=== PATIENT | female | born 1995 | race African-American/Black ===

== ENCOUNTER 2016-06-06 15:41 | Emergency (ER) | payer MEDICAID ==
[2016-06-06 15:52] VITALS: BP 106/60
--- NOTE | 2016-06-06 16:43 | ER Document Report ---
ED Medical Screen (RME) - General Mode of Arrival: Ambulatory Information source: Patient TRAVEL OUTSIDE OF THE [place] IN LAST 30 DAYS: No - HPI Patient complains to provider of: Withdrawal Symptoms Associated Symptoms: Other - see notes above <LILIYA MOURA - Last Filed: 06/06/16 17:23> <ANNIE CHAN - Last Filed: 06/06/16 19:14> - General Chief Complaint: Vomiting/Diarrhea Stated Complaint: WEAKNESS Notes: 21 year old (26 weeks) female with history of opiate drug abuse ( Percocet) presents to the ED complaining of withdrawal symptoms that include nausea, vomiting, diarrhea, and right abdominal pain. Patient was seen earlier today by the health department (had ultrasound performed) and was told to come to the ED for withdrawal medication to prevent labor. Patient states that she will be starting Subutex treatment on 06/13/2016 with Tiffanie Rodriguez. ( LILIYA MOURA) - Related Data Allergies/Adverse Reactions: No Known Allergies Allergy (Verified 06/06/16 16:10) Home Medications: Current Home Medications No Home Medications 06/06/16 [History] Past Medical History - General Information source: Patient Renal/ Medical History: Reports: Hx Pelvic Inflammatory Disease - month ago. Denies: Hx Peritoneal Dialysis GI Medical History: Reports: Hx Gastroesophageal Reflux Disease - Immunizations Hx Diphtheria, Pertussis, Tetanus Vaccination: No <LILIYA MOURA - Last Filed: 06/06/16 17:23> Review of Systems - Review of Systems Constitutional: No symptoms reported EENT: No symptoms reported Cardiovascular: No symptoms reported Respiratory: No symptoms reported Gastrointestinal: See HPI, Abdominal pain - right, Diarrhea, Nausea, Vomiting Genitourinary: No symptoms reported Female Genitourinary: See HPI, - 26 weeks Musculoskeletal: No symptoms reported Skin: No symptoms reported Hematologic/Lymphatic: No symptoms reported Neurological/Psychological: No symptoms reported -: Yes All other systems reviewed and negative <LILIYA MOURA - Last Filed: 06/06/16 17:23> Physical Exam - Vital signs Interpretation: Normal - General General appearance: Alert In distress: None - Abdominal Inspection: Normal Distension: No distension Tenderness: Tender - tenderness to palpation of the right abdomen <LILIYA MOURA - Last Filed: 06/06/16 17:23> - Respiratory Respiratory status: No respiratory distress Chest status: Nontender Breath sounds: Normal - Extremities General upper extremity: Normal inspection, Normal ROM General lower extremity: Normal inspection, Normal ROM <ANNIE CHAN - Last Filed: 06/06/16 19:14> - Vital signs Vitals: Temp Pulse Resp BP Pulse Ox 98.6 F 81 18 106/60 99 06/06/16 15:48 06/06/16 15:48 06/06/16 15:48 06/06/16 15:48 06/06/16 15:48 Course <LILIYA MOURA - Last Filed: 06/06/16 17:23> <ANNIE CHAN - Last Filed: 06/06/16 19:14> - Re-evaluation Re-evalutation: 06/06/16 Patient is a 21-year-old female who comes in stating that she is having withdrawal symptoms and she took her last Percocet this morning. Patient is going to be started on Suboxone soon was sent to the emergency department to see if somebody could prescribe a medication for her sooner. I have offered to give her medications for withdrawal such as Zofran, Vistaril, clonidine, and/or other nausea medications. Patient states that she was told to be getting something to prevent her from going into withdrawal. I've explained to the patient that I cannot prescribe Suboxone, methadone, and I'm not going to prescribe opiates someone who is trying to stop abusing opiates. Patient is concerned that she is going to go into withdrawal and because she is 26 weeks will have a problem and going to labor. Again, I have told the patient I'm happy to give her fluids and medications for withdrawal symptoms. I'm happy to send her to labor and delivery to be evaluated if she feels that she needs to be. Patient does not want non-addictive medications and she does not want to go to labor and delivery. Patient is becoming increasingly agitated in the triage area and is starting to swear. Called the patient's counselor at her insistence. Discussed with the patient's counselor as well and in the meantime the patient left the emergency department. 06/06/16 19:13 I personally performed the services described in the documentation, reviewed and edited the documentation which was dictated to the scribe in my presence, and it accurately records my words and actions. (ANNIE CHAN) - Vital Signs Vital signs: Temp Pulse Resp BP Pulse Ox 98.6 F 81 18 106/60 99 06/06/16 15:48 06/06/16 15:48 06/06/16 15:48 06/06/16 15:48 06/06/16 15:48 Doctor's Discharge <LILIYA MOURA - Last Filed: 06/06/16 17:23> <ANNIE CHAN - Last Filed: 06/06/16 19:14> - Discharge Clinical Impression: Opiate addiction Qualifiers: Substance use status: uncomplicated Qualified Code(s): F11.20 - Opioid dependence, uncomplicated Qualifiers: Weeks of gestation: 26 weeks Qualified Code(s): Z3A.26 - 26 weeks gestation of Condition: Stable Disposition: AGAINST MEDICAL ADVICE Instructions: Pain Control without Medication ([facility]) Additional Instructions: Please follow-up with your counselor when you are able to do so. Please return if you have any worsening or further concerns. Scribe Documentation - Scribe Written by Scott:: Scott Isaac, 06/06/2016 1643 acting as scribe for :: Chester <LILIYA MOURA - Last Filed: 06/06/16 17:23>
== END 2016-06-06 17:00 | disposition left against medical advice (07) ==
LOC: ER 15:41
DX: F11.20 Opioid dependence, uncomplicated (principal); R11.10 Vomiting, unspecified; R19.7 Diarrhea, unspecified; R53.1 Weakness; Z79.899 Other long term (current) drug therapy; Z3A.26 26 weeks gestation of pregnancy
CPT/HCPCS: 99281

== ENCOUNTER 2016-09-11 01:18 | Inpatient (IN) | payer MEDICAID ==
[2016-09-11] MEDS ORDERED: PENICILLIN G POTASSIUM 5,000,000 UNIT in DEXTROSE 5%-WATER 100 ML IV ONE (03:23)
[2016-09-11] MEDS ORDERED: RINGERS SOLUTION,LACTATED 1,000 ML IV PRN (03:23)
[2016-09-11] MEDS ORDERED: LIDOCAINE 1% INJ-PF (10 MG/ML) 30 ML SDV ONE (03:28)
[2016-09-11] MEDS ORDERED: PENICILLIN G-K 5 MILLION UNIT VIAL ONE (03:28)
[2016-09-11] MEDS ORDERED: OXYTOCIN/NORMAL SALINE 20 UNIT/1,000 ML RTUINJ ONE (03:28)
[2016-09-11] MEDS ORDERED: MISOPROSTOL 0.2 MG TABLET ONE (03:28)
[2016-09-11] MEDS ORDERED: PROMETHAZINE HCL INJ 25 MG/1 ML VIAL ONE (03:34)
[2016-09-11] MEDS ORDERED: NALBUPHINE HCL INJ 10 MG/1 ML AMPULE ONE (03:34)
[2016-09-11 04:07] LABS: ABSOLUTE EOSINOPHILS # (AUTO) 0.2 10^3/uL (0.0-0.6); ABSOLUTE LYMPHOCYTES (AUTO) 2.4 10^3/uL (0.5-4.7); ABSOLUTE MONOCYTES (AUTO) 1.2 10^3/uL (0.1-1.4); ABSOLUTE NEUT (AUTO) 14.1 10^3/uL (1.7-8.2); BASOPHILS % (AUTO) 0.2 % (0-2); EOSINOPHILS % (AUTO) 0.9 % (0-6); HEMATOCRIT 28.9 % (36.0-47.0); HEMOGLOBIN 8.9 g/dL (12.0-15.5); HGB HCT DIFFERENCE -2.2; LYMPHOCYTES % (AUTO) 13.3 % (13-45); MEAN CORPUSCULAR HEMOGLOBIN 24.8 pg (27.0-33.4); MEAN CORPUSCULAR HGB CONC 30.7 g/dL (32.0-36.0); MEAN CORPUSCULAR VOLUME 81 fl (80-97); MONOCYTES % (AUTO) 6.6 % (3-13); RED BLOOD COUNT 3.58 10^6/uL (3.72-5.28); WHITE BLOOD COUNT 17.9 10^3/uL (4.0-10.5)
[2016-09-11] MEDS ORDERED: BENZOCAINE/MENTHOL AEROSOL SPRAY 56 ML TOP PRN (04:30)
[2016-09-11] MEDS ORDERED: OXYTOCIN/NORMAL SALINE 20 UNIT/1,000 ML RTUINJ IV PRN (04:30)
[2016-09-11] MEDS ORDERED: DIPH/PERTUSS(ACELL)/TETANUS VAC/PF 0.5 ML SYR (>=10YO) IM PRN (04:30)
[2016-09-11] MEDS ORDERED: MEASLES,MUMPS&RUBELLA VACC/PF 0.5 ML VIAL SUBCUT PRN (04:30)
[2016-09-11] MEDS ORDERED: DIBUCAINE 1% OINTMENT 28 GM TP PRN (04:30)
[2016-09-11] MEDS ORDERED: ACETAMINOPHEN WITH CODEINE #3 TABLET PO PRN ×2 (04:30)
[2016-09-11] MEDS ORDERED: ZOLPIDEM TARTRATE 5 MG TABLET PO PRN (04:30)
--- NOTE | 2016-09-11 06:23 | Admission Physical ---
Datetime Report Generated by CPN: 09/11/2016 06:22 CURRENT ADMISSION Chief Complaint: Uterine Contractions Indication for Induction: Not Applicable Admit Plan: Admit to Unit; Initiate Labor Protocol ALLERGIES Medication Allergies: No Medication Allergies: No Known Allergies (09/11/2016) Medication Allergies: No Known Allergies (06/06/2016) Latex: No Latex Allergies Food Allergies: none Environmental Allergies: none OBSTETRICAL HISTORY EDC: 09/20/2016 00:00 : 3 Para: 1 Term: 1 : 0 SAB: 1 IAB: 0 Ectopic: 0 Livin Cesareans: 0 VBACs: 0 Multiple Births: 0 Gestational Diabetes: No Rh Sensitization: No Incompetent Cervix: No RAHAT: No Infertility: No ART Treatment: No Uterine Anomaly: No IUGR: No Hx Previous C/S: No Macrosomia: No Hx Loss/Stillborn: No PIH: No Hx : No Placenta Previa/Abruption: No Depression/PP Depression: Yes PTL/PROM: No Post Hemorrhage: No Current Procedures: Ultrasound Obstetrical History Comments: G1: 2016 40 weeks male-epidural G2: SAB 6 weeks-cytotec G3-0 current on suboxone-opiod addiction to percocet SEE RECORDS Alcohol: No Marijuana : Yes Marijuana Frequency: Occasional Marijuana Comments: rarely Cocaine: No Other Illicit Drugs: Yes Illicit Drug Comments: percocet, on subutex Cigarettes: Current Everyday Smoker. [id number] Cigarette Frequency: > 10 per day Advised to Stop: Yes MEDICAL HISTORY Diabetes: No Blood Transfusion: No Pulmonary Disease (Asthma, TB): No Breast Disease: No Hypertension: No Government Affairs Manager Surgery: No Heart Disease: No Hosp/Surgery: Yes Autoimmune Disorder: No Anesthetic Complications: No Kidney Disease: No Abnormal Pap Smear: No Neuro/Epilepsy: No Psychiatric Disorders: Yes Other Medical Diseases: No Hepatitis/Liver Disease: No Significant Family History: No Varicosities/Phlebitis: No Trauma/Violence : No Thyroid Dysfunction: No Medical History Comments: antibody screen positive for adonis antibody, childbirth, anxiety, and depression INFECTIOUS HISTORY Gonorrhea: No Genital Herpes: No Chlamydia: No Tuberculosis: No Syphilis: No Hepatitis: No HIV/AIDS Exposure: No Rash or Viral Illness: No HPV: No PHYSICAL EXAM General: Normal HEENT: Normal Neurologic: Normal Thyroid: Normal Heart: Normal Lungs: Normal Breast: Normal Back: Normal Abdomen: Normal Genitourinary Exam: Normal Extremities: Normal DTRs: Normal Pelvic Type: Adequate Vital Signs: Reviewed; Within Normal Limits VAGINAL EXAM Dilatation: 6 Effacement: 90 Station: -1 MEMBRANES Pooling: Negative Membranes: Intact FETUS A EGA: 38.5 Monitoring: External US FHR- Baseline: 120 Variability: Moderate 6-25bpm Accelerations: 15X15 Decelerations: Variable FHR Category: Category I FHR Comments: difficult to assess status due to maternal noncompliance with monitoring Estimated Weight (gm): 3200 Presentation: Vertex Admit Comment: review of records show report from [facility] approximately 2 wks ago. Sono at that time indicates a possible co-arctation of aorta and contriction of aortic valve. Pt did not follow up with [place] appointment for evaluation last week. Dr. Barnes notified and will come in for evaluation at delivery. PLANS FOR LABOR AND DELIVERY Labor and Delivery: None Pain Management: Epidural Feeding Preference: Breast Circumcision: No INFORMED CONSENT Signature: with User ID: [email or web address]
[2016-09-11] MEDS: IBUPROFEN 800 MG TABLET PO SCH ×2 (06:57→08:47)
[2016-09-11] MEDS ORDERED: PENICILLIN G POTASSIUM 2,500,000 UNIT in DEXTROSE 5%-WATER 50 ML IV SCH (07:24)
[2016-09-11] MEDS: DOCUSATE SODIUM 100 MG CAPSULE PO SCH ×2 (09:43→19:04)
[2016-09-11] MEDS: FERROUS SULFATE 325 MG TABLET PO SCH ×2 (09:44→19:04)
[2016-09-11] MEDS ORDERED: PRENATAL VITAMIN W-O CA NO5/FE FUMARATE/FA CAPSULE PO SCH (10:00)
[2016-09-11] MEDS ORDERED: SENNOSIDES/DOCUSATE 8.6-50 MG 1 EACH TABLET PO SCH (10:00)
[2016-09-11] MEDS ORDERED: ACETAMINOPHEN 325 MG TABLET PO PRN (12:47)
--- NOTE | 2016-09-11 15:19 | PDOC PROGRESS REPORT ---
Subjective-OB Subjective: Post Delivery Day: 21 year old s/p 9hrs ago. Denies any needs at this time, baby transferred to [facility] after delivery desires discharge in the am. Physical Exam (OB) Vital Signs: Temp Pulse Resp BP Pulse Ox 98.2 F 82 20 114/70 99 09/11/16 08:19 09/11/16 08:19 09/11/16 08:19 09/11/16 08:19 09/11/16 08:19 Intake & Output 09/10/16 09/11/16 09/12/16 06:59 06:59 06:59 Weight 77 kg - General General Appearance: Appears well In distress: None - Episiotomy/Laceration Site Condition: N/A - Lochia Lochia Amount: Scant < 10 ml Lochia Color: Rubra/Red - Abdomen Description: Soft Hernia Present: No Fundal Description: Firm, Midline Fundal Height: u/u - u/2 - Respiratory Respiratory Status: No respiratory distress - Extremities Upper extremity: Normal inspection Lower extremities: Normal inspection - Neurological Cognition: Normal Orientation: AAOx4 - Psychological Associated symptoms: Normal affect, Normal mood Objective-Diagnostic Laboratory: 09/11/16 03:52 09/11/16 09/11/16 03:52 03:52 WBC 17.9 H RBC 3.58 L Hgb 8.9 L Hct 28.9 L MCV 81 MCH 24.8 L MCHC 30.7 L RDW 16.0 H Plt Count 220 Seg Neutrophils % 79.0 H Lymphocytes % 13.3 Monocytes % 6.6 Eosinophils % 0.9 Basophils % 0.2 Absolute Neutrophils 14.1 H Absolute Lymphocytes 2.4 Absolute Monocytes 1.2 Absolute Eosinophils 0.2 Absolute Basophils 0.0 Blood Type B NEGATIVE Antibody Screen POSITIVE Assessment and Plan(PN) - Assessment and Plan (1) Vaginal delivery Is this a current diagnosis for this admission?: Yes (2) Acute blood loss anemia Is this a current diagnosis for this admission?: Yes (3) Smoker Is this a current diagnosis for this admission?: Yes (4) History of drug abuse Is this a current diagnosis for this admission?: Yes - Time Spent with Patient Time with patient: 15-25 minutes Smoking Education Provided: Over 3 minutes Medications reviewed and adjusted accordingly: Yes - Disposition Anticipated Discharge: Home Within: within 24 hours
--- NOTE | 2016-09-11 17:25 | PDOC DISCHARGE SUMMARY ---
Final Diagnosis Discharge Date: 09/11/16 Discharge Data - Discharge Medication Home Medications: Buprenorphine HCl [Subutex 8 mg Sublingual Tablet] 1 tab SL DAILY 09/11/16 Vit/Iron Fumarate/FA [ Tablet] 1 each PO DAILY 09/11/16 Gestational Age: 38.5 Reason(s) for Admission: Onset of Labor Admission Note: gbs unknown Procedures: NST Intrapartum Procedure(s): Spontaneous Vaginal Delivery - Data Baby 1 Female at 1 minute: 1 at 5 minutes: 3 at 10 minutes: 7 Weight: 3.345 kg Home with Mother: No Complications: Yes - transfer to [facility], cardiac issues - Diagnosis Test Laboratory: Temp Pulse Resp BP Pulse Ox 98.2 F 82 20 114/70 99 09/11/16 08:19 09/11/16 08:19 09/11/16 08:19 09/11/16 08:19 09/11/16 08:19 09/11/16 03:52 RBC 3.58 L Hgb 8.9 L Hct 28.9 L - Discharge information/Instructions Discharge Activity: Activity As Tolerated, Pelvic Rest, No tub bath Discharge Diet: Regular Disposition: HOME, SELF-CARE Follow up with: [facility] in: 4, Weeks
[2016-09-11 20:19] VITALS: BP 125/84
--- NOTE | 2016-09-12 10:30 | Delivery Summary ---
Del Sum A-C Datetime Report Generated by CPN: 09/12/2016 10:30 DELIVERY PERSONNEL DELIVERY PERSONNEL: [phone] Delivery Doctor:: Aure Khan MD Labor and Delivery Nurse:: Carley Hair RNglass cleaner Nurse:: Vandana Mckeon RN Production Administrative Assistant:: Thelma Obando RN Nursery Nurse:: Mahnaz Park RN Regional Climate Change Analyst/FLARER: Elise Preciado, ST MATERNAL INFORMATION Delivery Anesthesia: None Medications After Delivery: Pitocin Bolus-Please Comment; Pitocin Drip 20 Units/1000ml NSS Meds After Delivery Comment: NS with Pitocin 20 units/Liter IVF Estimated Blood Loss (ml): 200 Maternal Complications: Precipitous Labor (<3hrs); Other Other Maternal Complications: subutex usage, limited PNC, no record of care from 30 weeks until delivery other than MFM appts LABOR SUMMARY EDC: 09/20/2016 00:00 No. Babies in Womb: 1 Attempted: No Labor Anesthesia: None LABOR INFORMATION Reason for Induction: Not Applicable Onset of Labor: 09/11/2016 01:31 Complete Dilatation: 09/11/2016 03:28 Oxytocin: N/A Group B Beta Strep: unknown Antibiotics # of Doses: 0 Steroids Given: None Reason Steroids Not Administered: Not Applicable MEMBRANES Membranes Rupture Method: Spontaneous Membranes Rupture Method: Spontaneous Membranes Rupture Method: Spontaneous Rupture of Membranes: 09/11/2016 03:28 Rupture of Membranes: 09/11/2016 03:28 Length of Rupture (hr): 0.02 Length of Rupture (hr): 0.02 Amniotic Fluid Color: Heavy Meconium Amniotic Fluid Color: Particulate Meconium Amniotic Fluid Color: Heavy Meconium Amniotic Fluid Amount: Moderate Amniotic Fluid Amount: Moderate Amniotic Fluid Amount: Large Amniotic Fluid Odor: Normal Amniotic Fluid Odor: Normal STAGES OF LABOR Stage 1 hr: 1 Stage 1 min: 57 Stage 2 hr: 0 Stage 2 min: 1 Stage 3 hr: 0 Stage 3 min: 4 Total Time in Labor hr: 2 Total Time in Labor min: 2 VAGINAL DELIVERY Episiotomy: None Laceration Extension: N/A Laceration Type: None CSECTION DELIVERY Primary Indication: N/A Secondary Indication: N/A CSection Incision: N/A (Annotations: Data stored by N on behalf of user) BABY A INFORMATION Infant Delivery Date/Time: 09/11/2016 03:29 Method of Delivery: Vaginal Method of Delivery: Vaginal Born in Route : No : N/A Forceps: N/A Vacuum Extraction: N/A Shoulder Dystocia : No PRESENTATION/POSITION BABY A Presentation: Cephalic Cephalic Presentation: Vertex Vertex Position: Left Occipital Anterior Breech Presentation: N/A PLACENTA INFORMATION BABY A Placenta Delivery Time : 09/11/2016 03:33 Placenta Method of Delivery: Spontaneous Placenta Method of Delivery: Spontaneous Placenta Status: Delivered SCORES BABY A Heart Rate 1 min: Slow, Below 100 bpm Resp Effort 1 min: Absent Reflex Irritability 1 min: No Response Muscle Tone 1 min: Flaccid Color 1 min: Blue/Pale Resuscitation Effort 1 min: Tactile Stimulation; PPV/NCPAP; Chest Compression SCORE 1 MIN: 1 Heart Rate 5 min: >100 bpm Resp Effort 5 min: Absent Reflex Irritability 5 min: Grimace Muscle Tone 5 min: Flaccid Color 5 min: Blue/Pale Resuscitation Effort 5 min: Tactile Stimulation; PPV/NCPAP SCORE 5 MIN: 3 Heart Rate 10 min: >100 bpm Resp Effort 10 min: Good Cry Reflex Irritability 10 min: Grimace Muscle Tone 10 min: Active Motion Color 10 min: Blue/Pale Resuscitation Effort 10 min: Tactile Stimulation SCORE 10 MIN: 7 INFANT INFORMATION BABY A Gestational Age at Delivery: 38.5 Gestational Status: Early Term- 37- 38.6 Weeks Outcome : Liveborn Infant Condition : Stable Sex: Female Sex: Female IDENTIFICATION BABY A Infant Verification Date/Time: 09/11/2016 05:06 ID Band Number: [id number] Mother's Name Verified: Yes Infant RN Verifying Infant: B Reginaldo, RN Additional Verifying Personnel: Marcos Linda, RN WEIGHT/LENGTH BABY A Birthweight (gm): 3349 Infant Weight (lb): 7 Weight (oz): 6 Length (in): 19.75 Infant Length (cm): 50.17 CORD INFORMATION BABY A No. Cord Vessels: 3 Nuchal Cord : N/A Cord Blood Taken: [id number] to obtain Infant Suction: Mouth ASSESSMENT BABY A Infant Complications: Meconium Physical Findings at Delivery: Other Physical Findings- Other: possible COARC, transfered immediately to nursery Skin to Skin: No Plant Etiologist/ALS Called : Yes Infant Care By: RN Health Transferred To: NICU BABY B INFORMATION : N/A SIGNATURES Signature: with User ID: Linda
== END 2016-09-11 21:48 | disposition home or self-care (01) | DRG 775 ==
LOC: LC 01:18 → LR 03:15 → 2S 06:15
PROVIDERS: ADMIT Obstetrics & Gynecology; ATTEND Obstetrics & Gynecology
PROC: 10E0XZZ Delivery of Products of Conception, External Approach (ICD-10-PCS; principal; 2016-09-11)
PROC: 10907ZC Drainage of Amniotic Fluid, Therapeutic from Products of Conception, Via Natural or Artificial Opening (ICD-10-PCS; 2016-09-11)
PROC: 4A1HXCZ Monitoring of Products of Conception, Cardiac Rate, External Approach (ICD-10-PCS; 2016-09-11)
DX: O62.3 Precipitate labor (principal); D62 Acute posthemorrhagic anemia; O99.334 Smoking (tobacco) complicating childbirth; F17.210 Nicotine dependence, cigarettes, uncomplicated; O99.344 Other mental disorders complicating childbirth; F32.9 Major depressive disorder, single episode, unspecified; F41.9 Anxiety disorder, unspecified; O77.0 Labor and delivery complicated by meconium in amniotic fluid; Z3A.38 38 weeks gestation of pregnancy; Z37.0 Single live birth
CPT/HCPCS: 36415; 85025; 85461; 86592; 86850; 86870; 86900; 86901; 88307; J2300; J2540; J2550; J2590; J2790; J3490

== ENCOUNTER 2017-06-03 19:25 | Emergency (ER) | payer MEDICAID ==
--- NOTE | 2017-06-03 20:49 | ER Document Report ---
ED Medical Screen (RME) - General Chief Complaint: Vaginal Bleeding Stated Complaint: VAGINAL BLEEDING Time Seen by Provider: 06/03/17 20:48 Mode of Arrival: Ambulatory Information source: Patient Notes: 22-year-old female presents to ED for complaint of vaginal bleeding since yesterday. She states that her last menstrual period was May 27, 2017. She states this is not usual for her to bleed like this when she just had a period recently. She states she is passing large blood clots and having fever this morning of 102.8 but never took any Tylenol or Motrin and it went away on its own. She states she is having abdominal pain and cramping. She states she has been through about 7-8 pads today. I have greeted and performed a rapid initial assessment of this patient. A comprehensive ED assessment and evaluation of the patient, analysis of test results and completion of medical decision making process will be conducted by an additional ED providers. TRAVEL OUTSIDE OF THE [place] IN LAST 30 DAYS: No - Related Data Allergies/Adverse Reactions: No Known Allergies Allergy (Verified 09/11/16 05:52) Past Medical History Renal/ Medical History: Reports: Hx Pelvic Inflammatory Disease - month ago. Denies: Hx Peritoneal Dialysis GI Medical History: Reports: Hx Gastroesophageal Reflux Disease - Immunizations Hx Diphtheria, Pertussis, Tetanus Vaccination: No Physical Exam - Vital signs Vitals: Temp Pulse Resp BP Pulse Ox 98.6 F 92 14 107/62 97 06/03/17 19:48 06/03/17 19:48 06/03/17 19:48 06/03/17 19:48 06/03/17 19:48 Course - Vital Signs Vital signs: Temp Pulse Resp BP Pulse Ox 98.6 F 92 14 107/62 97 06/03/17 19:48 06/03/17 19:48 06/03/17 19:48 06/03/17 19:48 06/03/17 19:48
[2017-06-03] MEDS ORDERED: NORMAL SALINE 1000 ML 1,000 ML IV ONE ×2 (21:19→23:43)
[2017-06-03] MEDS ORDERED: KETOROLAC TROMETHAMINE INJ/PF 30 MG/1 ML SDV IV ONE (21:19)
[2017-06-03] MEDS ORDERED: ONDANSETRON HCL INJ/PF 4 MG/2 ML SDV IV ONE (21:20)
--- NOTE | 2017-06-03 21:24 | ER Document Report ---
ED GI/ - General Chief Complaint: Vaginal Bleeding Stated Complaint: VAGINAL BLEEDING Time Seen by Provider: 06/03/17 20:48 Mode of Arrival: Ambulatory Notes: Patient is a 22-year-old female that comes emergency department for chief complaint of lower abdominal pain and flank pain, vomiting, and fever. She started she finished bleeding a few days ago, started bleeding again on 2017 including clots, she states she had a fever of 102.8 earlier today, she has vomited 4 times. She states she has noticed some vaginal discharge. She is sexually active with her . TRAVEL OUTSIDE OF THE [place] IN LAST 30 DAYS: No - Related Data Allergies/Adverse Reactions: No Known Allergies Allergy (Verified 09/11/16 05:52) Past Medical History - General Information source: Patient - Social History Smoking Status: Current Every Day Smoker Chew tobacco use (# tins/day): No Frequency of alcohol use: Rare Drug Abuse: None Lives with: Family Family History: Reviewed & Not Pertinent Patient has suicidal ideation: No Patient has homicidal ideation: No Renal/ Medical History: Reports: Hx Pelvic Inflammatory Disease - month ago. Denies: Hx Peritoneal Dialysis GI Medical History: Reports: Hx Gastroesophageal Reflux Disease Surgical Hx: Negative - Immunizations Hx Diphtheria, Pertussis, Tetanus Vaccination: No Review of Systems - Review of Systems Constitutional: See HPI EENT: No symptoms reported Cardiovascular: No symptoms reported Respiratory: No symptoms reported Gastrointestinal: See HPI Genitourinary: See HPI Female Genitourinary: See HPI Musculoskeletal: No symptoms reported Skin: No symptoms reported Hematologic/Lymphatic: No symptoms reported Neurological/Psychological: No symptoms reported Physical Exam - Vital signs Vitals: Temp Pulse Resp BP Pulse Ox 98.6 F 92 14 107/62 97 06/03/17 19:48 06/03/17 19:48 06/03/17 19:48 06/03/17 19:48 06/03/17 19:48 Interpretation: Normal - General General appearance: Appears well, Alert In distress: None - HEENT Head: Normocephalic, Atraumatic Eyes: Normal Pupils: PERRL - Respiratory Respiratory status: No respiratory distress Chest status: Nontender Breath sounds: Normal Chest palpation: Normal - Cardiovascular Rhythm: Regular Heart sounds: Normal auscultation Murmur: No - Abdominal Inspection: Normal Distension: No distension Bowel sounds: Normal Tenderness: Tender - There is mild generalized lower abdominal tenderness, nonspecific, no guarding Organomegaly: No organomegaly - Genitourinary External exam: Normal Speculum exam: Cervix closed, Vaginal discharge Vaginal bleeding: None Notes: Nubia CARRILLO present at bedside during exam - Back Back: Tender - There is mild tenderness over the CVA areas on the back and also in the lower back, nonspecific, unremarkable back exam otherwise - Extremities General upper extremity: Normal inspection, Nontender, Normal color, Normal ROM , Normal temperature General lower extremity: Normal inspection, Nontender, Normal color, Normal ROM , Normal temperature, Normal weight bearing. No: Julio's sign - Neurological Neuro grossly intact: Yes Cognition: Normal Orientation: AAOx4 Bullock Coma Scale Eye Opening: Spontaneous Bullock Coma Scale Verbal: Oriented Eve Coma Scale Motor: Obeys Commands Eve Coma Scale Total: 15 Speech: Normal Motor strength normal: LUE, RUE, LLE, RLE Sensory: Normal - Psychological Associated symptoms: Normal affect, Normal mood - Skin Skin Temperature: Warm Skin Moisture: Dry Skin Color: Normal Course - Re-evaluation Re-evalutation: Patient has generalized lower abdominal tenderness without specific tenderness or guarding. Nonspecific flank pain as well. Reported fever and no fever here. Vital signs are normal here. Patient is top normal in appearance, after Toradol she stopped complaining of any pain, sleeping and easily aroused. CBC does show leukocytosis at 20,000, partially probably from vomiting but also do suspect an infection source. Urine shows questionable infection but not overt evidence for her symptoms. Pelvic exam performed, shows erythema, discharge, wet mount showing 4+ white blood cells. Suspect pelvic source of infection is the cause. Given Rocephin, doxycycline. Ultrasound does not show abscess or other abnormality. Discussed with patient, the gonorrhea and Chlamydia are taking a long time to resolve, longer than usual, she is ready to leave. She will be contacted with her results, she is already being covered for PID. 06/04/17 02:48 Patient still in the department, has not yet been discharged, results of pelvic exam finally available, shows patient has gonorrhea. Discussed with patient at bedside, she is informed that she does have gonorrhea causing her PID and most likely the cause of her symptoms. She has already had a dose of Rocephin, she will be home on doxycycline. Patient sleeping quietly, easily aroused, well- appearing, vital signs unremarkable, however discussed strict return precautions with patient. Patient states understanding and agreement. - Vital Signs Vital signs: Temp Pulse Resp BP Pulse Ox 98.4 F 88 16 113/70 98 06/04/17 03:11 06/04/17 03:11 06/04/17 03:11 06/04/17 03:11 06/04/17 03:11 - Laboratory Result Diagrams: 06/03/17 21:00 06/03/17 21:00 Laboratory results interpreted by me: 06/03/17 06/03/17 06/03/17 21:00 21:00 21:00 WBC 21.0 H RDW 14.6 H Seg Neutrophils % 86.2 H Lymphocytes % 9.6 L Absolute Neutrophils 18.1 H Sodium 136.3 L Chloride 95 L Glucose 111 H Urine Protein 30 H Urine Ketones 25 H Urine Blood SMALL H Urine Urobilinogen 2.0 H Ur Leukocyte Esterase SMALL H N.gonorrhoeae DNA (PCR) 06/03/17 22:27 WBC RDW Seg Neutrophils % Lymphocytes % Absolute Neutrophils Sodium Chloride Glucose Urine Protein Urine Ketones Urine Blood Urine Urobilinogen Ur Leukocyte Esterase N.gonorrhoeae DNA (PCR) DETECTED H Discharge - Discharge Clinical Impression: Abdominal pain Qualifiers: Abdominal location: generalized Qualified Code(s): R10.84 - Generalized abdominal pain Condition: Stable Disposition: HOME, SELF-CARE Additional Instructions: Your workup indicates a pelvic infection, the ultrasound is normal, the test is negative. Complete doxycycline antibiotic as prescribed, take Zofran for nausea if needed , take Toradol for pain if needed. Avoid sexual intercourse for 1 week. Follow-up closely with primary care. Return if you worsen including worsening pain, uncontrolled vomiting, spiking fever, or any other concerning or worsening symptoms. See additional instructions below. Observation for Appendicitis At this time, the abdominal pain does not seem to be appendicitis. Our next "test" will be passage of time. If you have early appendicitis, signs will appear to help us make the diagnosis. Most of the time, the pain goes away. In these cases, the pain is usually due to a virus in the lymph glands near the appendix, or due to an ovarian cyst or ovulation. Unless the pain is gone, you should come back for a recheck. This is usually done in 8 to 12 hours. Be sure you understand your follow-up instructions. Come back immediately if: (1) the pain becomes much more severe and sharply increases with movement or coughing, (2) vomiting becomes frequent, (3) there is blood in the vomit, urine, or bowel movements, (4) there are shaking chills or fever, or (5) the abdomen becomes more distended or swollen. Prescriptions: Ketorolac Tromethamine [Toradol 10 mg Tablet] 10 mg PO Q8HP PRN #24 tablet PRN Reason: Doxycycline Hyclate 100 mg PO BID #14 capsule Ondansetron [Zofran Odt 4 mg Tablet] 1 - 2 tab PO Q4H PRN #15 tab.rapdis PRN Reason: For Nausea/Vomiting Referrals: CHARLENE ZAPATA MD [Primary Care Provider] - Follow up as needed
[2017-06-03 21:33] LABS: ABSOLUTE MONOCYTES (AUTO) 0.9 10^3/uL (0.1-1.4); ABSOLUTE NEUT (AUTO) 18.1 10^3/uL (1.7-8.2); BASOPHILS % (AUTO) 0.1 % (0-2); HEMATOCRIT 40.4 % (36.0-47.0); HEMOGLOBIN 13.5 g/dL (12.0-15.5); LYMPHOCYTES % (AUTO) 9.6 % (13-45); MEAN CORPUSCULAR HEMOGLOBIN 29.4 pg (27.0-33.4); MEAN CORPUSCULAR HGB CONC 33.3 g/dL (32.0-36.0); MEAN CORPUSCULAR VOLUME 88 fl (80-97); MONOCYTES % (AUTO) 4.1 % (3-13); RED BLOOD COUNT 4.58 10^6/uL (3.72-5.28); RED CELL DISTRIBUTION WIDTH 14.6 % (11.5-14.0); SEGMENTED NEUTROPHILS % (AUTO) 86.2 % (42-78); TOTAL CELLS COUNTED % (AUTO) 100 %
[2017-06-03 21:51] LABS: ALANINE AMINOTRANSFERASE 18 U/L (9-52); ALBUMIN 4.6 g/dL (3.5-5.0); ALKALINE PHOSPHATASE 75 U/L (38-126); ANION GAP 14 (5-19); ASPARTATE AMINO TRANSFERASE 19 U/L (14-36); BILIRUBIN,DIRECT 0.3 mg/dL (0.0-0.4); BILIRUBIN,TOTAL 1.3 mg/dL (0.2-1.3); BLOOD UREA NITROGEN 12 mg/dL (7-20); CALCIUM 9.6 mg/dL (8.4-10.2); CARBON DIOXIDE 27 mmol/L (22-30); CHLORIDE 95 mmol/L (98-107); GLUCOSE 111 mg/dL (75-110); POTASSIUM 3.8 mmol/L (3.6-5.0); SODIUM 136.3 mmol/L (137-145); TOTAL PROTEIN 7.6 g/dL (6.3-8.2)
[2017-06-03 21:56] LABS: PLATELET COUNT 250 10^3/uL (150-450)
[2017-06-03 22:07] LABS: APPEARANCE,URINE CLEAR; BILIRUBIN,URINE NEGATIVE (NEGATIVE); COLOR,URINE AMBER; GLUCOSE, URINE NEGATIVE (NEGATIVE); KETONES,URINE 25 mg/dL (NEGATIVE); URINE SPECIFIC GRAVITY 1.022
[2017-06-03 22:08] LABS: LEUKOCYTE ESTERASE,URINE SMALL (NEGATIVE); NITRITE,URINE NEGATIVE (NEGATIVE); PROTEIN,URINE 30 mg/dL (NEGATIVE)
[2017-06-03 23:40] LABS: EPITHELIALS (WET MOUNT) 4+ EPITHELIALS SEEN; RBCS (WET MOUNT) FEW RBCS SEEN; WBCS (WET MOUNT) 4+ WBCS SEEN; YEAST (WET MOUNT) NO YEAST SEEN
[2017-06-04] MEDS ORDERED: CEFTRIAXONE INJ 250 MG VIAL IV ONE (00:30)
[2017-06-04] MEDS ORDERED: DOXYCYCLINE HYCLATE 100 MG TABLET PO ONE (00:31)
--- NOTE | 2017-06-04 00:45 | RADIOLOGY REPORT (SQ) ---
EXAM DESCRIPTION: U/S NON OB PEL TV W/DOPPLER CLINICAL HISTORY: 22 years, Female, pelvic pain, bleeding, fever, leukocytosis COMPARISON: None. TECHNIQUE: Transvaginal. LIMITATIONS: None. FINDINGS: 8.1 cm uterus, 1.4 cm thick endometrial stripe with minimal fluid, 3.4 cm cervical length, 4.2 cm right ovary, and 4.1 cm left ovary appear otherwise normal size, shape, echotexture, and vascularity. IMPRESSION: Normal pelvic sonogram.
[2017-06-04 02:07] LABS: CHLAM PCR NOT DETECTED (NOT DETECT); GON PCR DETECTED (NOT DETECT)
[2017-06-04 03:14] VITALS: BP 113/70
== END 2017-06-04 03:05 | disposition home or self-care (01) ==
LOC: ER 19:25
DX: R10.84 Generalized abdominal pain (principal); N93.8 Other specified abnormal uterine and vaginal bleeding; R11.10 Vomiting, unspecified; R50.9 Fever, unspecified; F17.200 Nicotine dependence, unspecified, uncomplicated
CPT/HCPCS: 99284; 96361; 96375; 96365; 36415; 87210; 84703; 85025; 80053; 81001; 87491; 87591; 76830; 93976; J3490; J1885; J2405; J7030 ×2; J0696

== ENCOUNTER 2017-10-09 18:55 | Emergency (ER) | payer SELFPAY ==
--- NOTE | 2017-10-09 19:54 | ER Document Report ---
ED GI/ - General TRAVEL OUTSIDE OF THE [place] IN LAST 30 DAYS: Yes - General Chief Complaint: Abdominal Pain Stated Complaint: STOMACH PAIN Time Seen by Provider: 10/09/17 19:38 Notes: Chief complaint: abdominal pain: Left sided abdominal pain History of complain:( obtained from----patient) 22 years old female who tested a test came back positive. Meantime she also has has left sided abdominal pain on and off mild to moderate, with the vagina discharge which is creamy in color. Therefore present to the ED. No fever chills or other constitutional symptoms denies any dysuria frequency. This is her fourth with 2 living children and one miscarriage Onset: As above Duration: Gradual Severity: Mild Quality:dull Context: Unknown Exacerbating factor and relieving factors: None REVIEW OF SYSTEMS: CONSTITUTIONAL : Denies fever, chills, or sweats. Denies recent illness. EENT: Denies eye, ear, throat, or mouth pain or symptoms. Denies nasal or sinus congestion or discharge. Denies throat, tongue, or mouth swelling or difficulty swallowing. CARDIOVASCULAR: Denies chest pain. Denies palpitations or racing or irregular heart beat. Denies ankle edema. RESPIRATORY: Denies cough, cold, or chest congestion. Denies shortness of breath, difficulty breathing, or wheezing. GASTROINTESTINAL: Denies distention. Denies nausea, vomiting, or diarrhea. Denies blood in vomitus, stools, or per rectum. Denies black, tarry stools. Denies constipation. GENITOURINARY: Denies difficulty urinating, painful urination, burning, frequency, blood in urine, or discharge. FEMALE GENITOURINARY: Denies vaginal bleeding, heavy or abnormal periods, irregular periods. Denies vaginal discharge or odor. MUSCULOSKELETAL: Denies back or neck pain or stiffness. Denies joint pain or swelling. SKIN: Denies rash, lesions or sores. HEMATOLOGIC : Denies easy bruising or bleeding. LYMPHATIC: Denies swollen, enlarged glands. NEUROLOGICAL: Denies confusion or altered mental status. Denies passing out or loss of consciousness. Denies dizziness or lightheadedness. Denies headache. Denies weakness or paralysis or loss of use of either side. Denies problems with gait or speech. Denies sensory loss, numbness, or tingling. Denies seizures. PSYCHIATRIC: Denies anxiety or stress. Denies depression, suicidal ideation, or homicidal ideation. ALL OTHER SYSTEMS REVIEWED AND NEGATIVE. PHYSICAL EXAMINATION: GENERAL: Well-appearing, well-nourished and in no acute distress. HEAD: Atraumatic, normocephalic. EYES: Pupils equal round and reactive to light, extraocular movements intact, conjunctiva are normal. ENT: Nares patent, oropharynx clear without exudates. Moist mucous membranes. NECK: Normal range of motion, supple without lymphadenopathy LUNGS: Breath sounds clear to auscultation bilaterally and equal. No wheezes rales or rhonchi. HEART: Regular rate and rhythm without murmurs ABDOMEN: Soft, mild tenderness over the left side of the abdomen, with palpable fecal mass., nondistended abdomen. No guarding, no rebound. No masses appreciated. Female : deferred Musculoskeletal: Normal range of motion, no pitting or edema. No cyanosis. NEUROLOGICAL: Cranial nerves grossly intact. Normal speech, normal gait. Normal sensory, motor exams PSYCH: Normal mood, normal affect. SKIN: Warm, Dry, normal turgor, no rashes or lesions noted. Dictation was performed using Head Held High voice recognition software (SIMEON VILLARREAL) - [facility] Notes: 10/09/17 19:53 Dictated (SIMEON VILLARREAL) - Related Data Allergies/Adverse Reactions: No Known Allergies Allergy (Verified 09/11/16 05:52) Past Medical History - Social History Smoking Status: Current Every Day Smoker Chew tobacco use (# tins/day): No Frequency of alcohol use: None Drug Abuse: None Family History: Reviewed & Not Pertinent Patient has suicidal ideation: No Patient has homicidal ideation: No Renal/ Medical History: Reports: Hx Pelvic Inflammatory Disease - month ago. Denies: Hx Peritoneal Dialysis GI Medical History: Reports: Hx Gastroesophageal Reflux Disease - Immunizations Hx Diphtheria, Pertussis, Tetanus Vaccination: No Review of Systems - Review of Systems Notes: Dictated (SIMEON VILLARREAL) Physical Exam - Notes Notes: Dictated (SIMEON VILLARREAL) - Laboratory Laboratory results interpreted by me: 10/09/17 10/09/17 19:40 20:23 Urine Urobilinogen 4.0 H Ur Leukocyte Esterase SMALL H Urine Ascorbic Acid 40 H Urine HCG, Qual POSITIVE H N.gonorrhoeae DNA (PCR) DETECTED H Discharge - Discharge Condition: Stable Disposition: HOME, SELF-CARE Additional Instructions: Gonorrhea You have been diagnosed with gonorrhea. In women, the germ infects the vagina and fallopian tubes. There may be discharge and pelvic pain. Some women have no symptoms at all. The infection can do permanent damage to the tubes and ovaries. It should be taken very seriously. Treatment is antibiotics. It's important that you receive all recommended medication. Use condoms to prevent spread of the infection. Because this infection is spread sexually, your sexual partner must be checked before resuming sexual relations. If a culture shows gonorrhea germs, it must be reported to the health department. Call the doctor or return at once if you develop increasing fever, rash, joint swelling, severe pelvic pain, vaginal bleeding (other than your period), or problems with your bladder or bowels. Referrals: CHARLENE ZAPATA MD [Primary Care Provider] - Follow up as needed
[2017-10-09 20:30] LABS: APPEARANCE,URINE SLIGHTLY-CLOUDY; BILIRUBIN,URINE NEGATIVE (NEGATIVE); GLUCOSE, URINE NEGATIVE (NEGATIVE); KETONES,URINE NEGATIVE (NEGATIVE); LEUKOCYTE ESTERASE,URINE SMALL (NEGATIVE); NITRITE,URINE NEGATIVE (NEGATIVE); PROTEIN,URINE NEGATIVE (NEGATIVE); URINE SPECIFIC GRAVITY 1.032
[2017-10-09 20:31] LABS: COLOR,URINE YELLOW
[2017-10-09 22:16] LABS: CHLAM PCR NOT DETECTED (NOT DETECT); GON PCR DETECTED (NOT DETECT)
--- NOTE | 2017-10-09 22:21 | RADIOLOGY REPORT (SQ) ---
EXAM DESCRIPTION: U/S OB TRANSVAG W/DOPPLER COMPLETED DATE/TIME: 10/09/2017 10:06 pm REASON FOR STUDY: Abdominal pain/ COMPARISON: None. TECHNIQUE: Transvaginal static and realtime grayscale images acquired of the pelvis. Additional mag cted spectral and color Doppler images recorded. All images stored on PACs. bHCG: Positive. Quantitative was not done. CLINICAL DATES: LMP 08/19/2017. 7 weeks 2 days. LIMITATIONS: None. FINDINGS: FETUS: Living intrauterine . ULTRASOUND EGA: 7 weeks 1 day. ULTRASOUND RAMYA: 05/27/2018. CRL: 1 cm FHR: 152 beats per minute. SUBCHORIONIC BLEED: Yes SIZE OF BLEED: 8 x 7 x 10 mm UTERUS: No masses or anomalies. 10.2 x 7.4 x 8.3 cm. CERVICAL LENGTH: 3.5 cm. Closed. RIGHT ADNEXA: Normal ovary with normal vascular flow. 4 x 2.7 x 2.8 cm. There is a 1.8 x 1.8 x 1.4 cm corpus luteum. No adnexal free fluid. No adnexal masses. LEFT ADNEXA: Normal ovary with normal vascular flow. 4.4 x 2.5 x 2.1 cm. No adnexal free fluid. No adnexal masses. FREE FLUID: None. OTHER: No other significant finding. IMPRESSION: LIVING INTRAUTERINE . EGA 7 weeks 1 day. Findings as described. Trimester of : First - 0 to 13 weeks. TECHNICAL DOCUMENTATION: JOB ID: [id number] [employer] All Rights Reserved rev Reading location - IP/workstation name: [email or web address]
[2017-10-09] MEDS ORDERED: AZITHROMYCIN 250 MG TABLET PO ONE (22:53)
[2017-10-09] MEDS ORDERED: LIDOCAINE 1% INJ-PF (10 MG/ML) 30 ML SDV INJ ONE (22:53)
[2017-10-09] MEDS ORDERED: CEFTRIAXONE INJ 250 MG VIAL IM ONE (22:57)
== END 2017-10-09 23:17 | disposition home or self-care (01) ==
LOC: ER 18:55
DX: O98.211 Gonorrhea complicating pregnancy, first trimester (principal); O26.891 Other specified pregnancy related conditions, first trimester; R10.9 Unspecified abdominal pain; O99.331 Smoking (tobacco) complicating pregnancy, first trimester; Z3A.01 Less than 8 weeks gestation of pregnancy
CPT/HCPCS: 99284; 96372; 36415; 84702; 81025; 81001; 87491; 87591; 76817; 93976; J3490; J0696

== ENCOUNTER → 2018-02-12 | Outpatient (CLI) | payer SELFPAY ==
--- NOTE | 2018-02-12 15:16 | RADIOLOGY REPORT (SQ) ---
EXAM DESCRIPTION: U/S OB 14+ TRNABD 1GES W/O DOP COMPLETED DATE/TIME: 02/12/2018 2:45 pm REASON FOR STUDY: Z34.82 ENCOUNTER FOR SUPERVISION OF OTHER NORMAL , SECOND TRIMESTE Z34.82 ENCOUNTER FOR SUPRVSN OF NORMAL , SECOND TRI COMPARISON: None. TECHNIQUE: Static and Dynamic grayscale imaging performed of gravid uterus using transabdominal appr oach. Additional selected color Doppler and spectral images recorded. All stored on PACS. LIMITATIONS: None. FINDINGS: FETUSES SEEN:1 EGA: 25 weeks 5 days Calculated using BPD,FL,HC,AC documented on images. No discrepancy with clinica l dates. RAMYA: 05/23/2018 EFW: 878 grams PERCENTILE: 58% CON: Adequate amount. PLACENTA: Anterior PRESENTATION: Cephalic. ANATOMY: HEART RATE: 145 beats per minute. FOUR CHAMBER HEART: Visualized. THREE VESSEL CORD: Yes. CORD INSERTION: Visualized. KIDNEYS AND BLADDER: Visualized. Appear normal. STOMACH: Visualized. Appears normal. SPINE: Normal as visualized. BRAIN AND LATERAL VENTRICLES: Visualized. Appear normal. OTHER: No other significant finding. MATERNAL ADNEXA: Maternal ovaries not visualized. CERVICAL LENGTH: 3.3 cm Closed. OTHER: No other significant finding. IMPRESSION: LIVING INTRAUTERINE . ESTIMATED GESTATIONAL AGE 25 weeks 5 days NO VISUALIZED ANOMALIES. Trimester of : Second trimester - 13 weeks 1 day to 27 weeks 6 days. TECHNICAL DOCUMENTATION: JOB ID: [id number] [employer]- All Rights Reserved Reading location - IP/workstation name: [email or web address]
== END ==
LOC: RAD 13:59
PROVIDERS: ATTEND Nurse Practitioner
DX: Z34.82 Encounter for supervision of other normal pregnancy, second trimester (principal)
CPT/HCPCS: 76805

== ENCOUNTER 2018-05-20 00:05 | Inpatient (IN) | payer MEDICAID ==
[2018-05-20 00:34] LABS: APPEARANCE,URINE SLIGHTLY-CLOUDY; BILIRUBIN,URINE NEGATIVE (NEGATIVE); COLOR,URINE STRAW; GLUCOSE, URINE NEGATIVE (NEGATIVE); KETONES,URINE NEGATIVE (NEGATIVE); LEUKOCYTE ESTERASE,URINE NEGATIVE (NEGATIVE); NITRITE,URINE NEGATIVE (NEGATIVE); PROTEIN,URINE NEGATIVE (NEGATIVE); URINE SPECIFIC GRAVITY 1.004; UROBILINOGEN,URINE NEGATIVE mg/dL (<2.0)
[2018-05-20 01:04] LABS: URINE AMPHETAMINES SCREEN NEGATIVE; URINE BARBITURATES SCREEN NEGATIVE; URINE BENZODIAZEPINES SCREEN NEGATIVE; URINE METHADONE SCREEN NEGATIVE; URINE PHENCYCLIDINE SCREEN NEGATIVE
[2018-05-20 01:20] LABS: URINE MARIJUANA (THC) SCREEN UNCONFIRMED POSITIVE
[2018-05-20 01:21] LABS: URINE COCAINE SCREEN UNCONFIRMED POSITIVE
[2018-05-20] MEDS ORDERED: RINGERS SOLUTION,LACTATED 1,000 ML IV PRN (02:48)
[2018-05-20] MEDS ORDERED: MISOPROSTOL 0.2 MG TABLET ONE (02:51)
[2018-05-20] MEDS ORDERED: OXYTOCIN/NORMAL SALINE 20 UNIT/1,000 ML RTUINJ ONE (02:52)
[2018-05-20] MEDS ORDERED: LIDOCAINE 1% INJ-PF (10 MG/ML) 30 ML SDV ONE (02:52)
--- NOTE | 2018-05-20 02:57 | RADIOLOGY REPORT (SQ) ---
CLINICAL HISTORY: nonreactive 39wk COMPARISON: None. TECHNIQUE: US BIOPHYSICAL PROFILE WITHOUT NON STRESS TEST on 05/20/2018 1:28 AM CDT FINDINGS: CON is normal at 10.4 cm. breathing, tone and movement was not observed. heart rate is 145 bpm. The fetus is in vertex presentation. IMPRESSION: Biophysical profile two out of eight.
[2018-05-20 03:05] LABS: ABSOLUTE BASOPHILS # (AUTO) 0.1 10^3/uL (0.0-0.2); ABSOLUTE EOSINOPHILS # (AUTO) 0.3 10^3/uL (0.0-0.6); ABSOLUTE LYMPHOCYTES (AUTO) 3.1 10^3/uL (0.5-4.7); ABSOLUTE MONOCYTES (AUTO) 1.3 10^3/uL (0.1-1.4); ABSOLUTE NEUT (AUTO) 8.1 10^3/uL (1.7-8.2); BASOPHILS % (AUTO) 0.4 % (0-2); EOSINOPHILS % (AUTO) 2.3 % (0-6); LYMPHOCYTES % (AUTO) 24.2 % (13-45); MEAN CORPUSCULAR HGB CONC 33.3 g/dL (32.0-36.0); MEAN CORPUSCULAR VOLUME 84 fl (80-97); MONOCYTES % (AUTO) 10.4 % (3-13); PLATELET COUNT 200 10^3/uL (150-450); RED BLOOD COUNT 3.91 10^6/uL (3.72-5.28); RED CELL DISTRIBUTION WIDTH 15.2 % (11.5-14.0); SEGMENTED NEUTROPHILS % (AUTO) 62.7 % (42-78); TOTAL CELLS COUNTED % (AUTO) 100 %; WHITE BLOOD COUNT 12.9 10^3/uL (4.0-10.5)
[2018-05-20] MEDS ORDERED: EPHEDRINE SULFATE INJ 50 MG/1 ML AMPULE ONE (03:39)
[2018-05-20] MEDS ORDERED: FENTANYL CITRATE INJ/PF 100 MCG/2 ML AMPUL ONE (03:39)
[2018-05-20] MEDS ORDERED: PHENYLEPHRINE HCL INJ/PF 10 MG/1 ML SDV ONE (03:39)
[2018-05-20] MEDS ORDERED: LIDOCAINE 1.5%/EPINEPHRINE INJ 5 ML AMP ONE (03:40)
[2018-05-20] MEDS ORDERED: BUPIVACAINE HCL 0.25 % INJ/PF (2.5 MG/1 ML) 30 ML VIAL ONE (03:40)
[2018-05-20] MEDS ORDERED: FENTANYL/BUPIVACAINE/NS/PF 300 MCG/150 ML RTUINJ EPI ONE (03:40)
--- NOTE | 2018-05-20 05:57 | Admission Physical ---
Datetime Report Generated by CPN: 05/20/2018 05:57 CURRENT ADMISSION Chief Complaint: Uterine Contractions Indication for Induction: Not Applicable Admit Impression : Term, Intrauterine Admit Plan: Initiate Labor Protocol ALLERGIES Medication Allergies: No Medication Allergies: No Known Allergies (05/20/2018) Latex: No Latex Allergies OBSTETRICAL HISTORY EDC: 05/27/2018 00:00 : 4 Para: 2 Term: 2 : 0 SAB: 1 IAB: 0 Ectopic: 0 Livin Cesareans: 0 VBACs: 0 Multiple Births: 0 Current Procedures: Ultrasound; NST Obstetrical History Comments: G1- 2013 at 40weeks, 8lbs 15oz male G2- 6 week SAB G3- 2017 at 39 weeks, 7lbs 3oz female- baby with pulm HTN G4- current SEE RECORDS Alcohol: No Marijuana : Yes Marijuana Comments: positive on admission 05/20/18 Cocaine: Yes Cocaine Comments: positive on admission 05/20/18 Other Illicit Drugs: No Cigarettes: Current Everyday Smoker. [id number] MEDICAL HISTORY Hosp/Surgery: Yes Medical History Comments: GERD, anemia, Hx percocet dependence-was on subutex in 2017- not currently on meds PHYSICAL EXAM General: Normal HEENT: Normal Neurologic: Normal Thyroid: Normal Heart: Normal Lungs: Normal Breast: Deferred Back: Normal Abdomen: Normal Genitourinary Exam: Normal Extremities: Normal DTRs: Normal Pelvic Type: Adequate FETUS A EGA: 39.0 PLANS FOR LABOR AND DELIVERY Labor and Delivery: None Pain Management: Epidural Feeding Preference: Formula Benefit of Breast Feed Discussed: Yes Circumcision: Yes INFORMED CONSENT Signature: with User ID: [email or web address]
[2018-05-20] MEDS ORDERED: PROMETHAZINE HCL 25 MG SUPP.RECT PR PRN (06:02)
[2018-05-20] MEDS ORDERED: DIBUCAINE 1% OINTMENT 56 GM TP PRN (06:02)
[2018-05-20] MEDS ORDERED: NA PHOS,M-B/NA PHOS,DI-BA (ADULT) 133 ML ENEMA PR PRN (06:02)
[2018-05-20] MEDS ORDERED: GLYCERIN/WITCH HAZEL LEAF 1 EACH MED..PAD TP PRN (06:02)
[2018-05-20] MEDS ORDERED: DIPHENHYDRAMINE HCL 25 MG CAPSULE PO PRN (06:02)
[2018-05-20] MEDS ORDERED: DIPH/PERTUSS(ACELL)/TETANUS VAC/PF 0.5 ML SYR (>=10YO) IM PRN (06:02)
[2018-05-20] MEDS ORDERED: PROMETHAZINE HCL 25 MG TABLET PO PRN (06:02)
[2018-05-20] MEDS ORDERED: ACETAMINOPHEN 650 MG SUPP.RECT PR PRN (06:02)
[2018-05-20] MEDS ORDERED: BENZOCAINE/MENTHOL AEROSOL SPRAY 56 ML TOP PRN (06:02)
[2018-05-20] MEDS ORDERED: PROMETHAZINE HCL INJ 25 MG/1 ML VIAL IV PRN (06:02)
[2018-05-20] MEDS ORDERED: MEASLES,MUMPS&RUBELLA VACC/PF 0.5 ML VIAL SUBCUT PRN (06:02)
[2018-05-20] MEDS ORDERED: PSEUDOEPHEDRINE HCL 30 MG TABLET PO PRN (06:02)
[2018-05-20] MEDS ORDERED: ZOLPIDEM TARTRATE 5 MG TABLET PO PRN (06:02)
[2018-05-20] MEDS ORDERED: OXYTOCIN/NORMAL SALINE 20 UNIT/1,000 ML RTUINJ IV PRN (06:02)
[2018-05-20] MEDS ORDERED: MAGNESIUM HYDROXIDE SUSP 30 ML UDCUP PO PRN (06:02)
--- NOTE | 2018-05-20 06:52 | Delivery Summary ---
Del Sum A-C Datetime Report Generated by CPN: 05/20/2018 06:52 DELIVERY PERSONNEL DELIVERY PERSONNEL: [id number] Delivery Doctor:: Walter Baez MD Labor and Delivery Nurse:: Taylor Ivory RNalumina refinery operator Nurse:: Vandana Mckeon RN Nursery Nurse:: Mahnaz Park RN Manager Operational/DIRECTOR OF BANDS: Elda Lacey, RIVETER HELPER MATERNAL INFORMATION Delivery Anesthesia: Epidural Medications After Delivery: Pitocin Drip 20 Units/1000ml NSS Maternal Complications: Other Complication Details: positive cocaine and marijuana LABOR SUMMARY EDC: 05/27/2018 00:00 No. Babies in Womb: 1 Attempted: No Labor Anesthesia: Epidural LABOR INFORMATION Reason for Induction: Not Applicable Onset of Labor: 05/20/2018 02:40 Complete Dilatation: 05/20/2018 05:41 Oxytocin: N/A Group B Beta Strep: Negative Antibiotics # of Doses: 0 Antibiotics Time of Last Dose: n/a Name of Antibiotic Given: N/A Steroids Given: None Reason Steroids Not Administered: Not Applicable MEMBRANES Membranes Rupture Method: Artificial Rupture of Membranes: 05/20/2018 05:23 Length of Rupture (hr): 0.43 Amniotic Fluid Color: Moderate Meconium Amniotic Fluid Amount: Moderate Amniotic Fluid Odor: Normal STAGES OF LABOR Stage 1 hr: 3 Stage 1 min: 1 Stage 2 hr: 0 Stage 2 min: 8 Stage 3 hr: 0 Stage 3 min: 5 Total Time in Labor hr: 3 Total Time in Labor min: 14 VAGINAL DELIVERY Episiotomy: None Laceration #1: None Laceration Extension #1: N/A Laceration Repair: Not Applicable Sponge Count Correct: Yes Sharps Count Correct: Yes CSECTION DELIVERY Primary Indication: N/A Secondary Indication: N/A CSection Incidence: N/A Labor: N/A Elective: N/A CSection Incision: N/A BABY A INFORMATION Delivery Date/Time: 05/20/2018 05:49 Method of Delivery: Vaginal Born in Route : No : N/A Forceps: N/A Vacuum Extraction: N/A Shoulder Dystocia : No PRESENTATION/POSITION BABY A Presentation: Cephalic Cephalic Presentation: Vertex Vertex Position: Left Occipital Anterior Breech Presentation: N/A PLACENTA INFORMATION BABY A Placenta Delivery Time : 05/20/2018 05:54 Placenta Method of Delivery: Spontaneous Placenta Status: Delivered SCORES BABY A Heart Rate 1 min: >100 bpm Resp Effort 1 min: Good Cry Reflex Irritability 1 min: Cough or Sneeze or Pulls Away Muscle Tone 1 min: Active Motion Color 1 min: Blue/Pale Resuscitation Effort 1 min: Tactile Stimulation SCORE 1 MIN: 8 Heart Rate 5 min: >100 bpm Resp Effort 5 min: Good Cry Reflex Irritability 5 min: Cough or Sneeze or Pulls Away Muscle Tone 5 min: Active Motion Color 5 min: Body [place], Extremities Blue Resuscitation Effort 5 min: Tactile Stimulation; Oxygen SCORE 5 MIN: 9 INFANT INFORMATION BABY A Gestational Age at Delivery: 39.0 Gestational Status: Full Term- 39- 40.6 Weeks Outcome : Liveborn Condition : Stable Infant Sex: Male IDENTIFICATION BABY A Verification Date/Time: 05/20/2018 06:07 ID Band Number: [id number] Mother's Name Verified: Yes Infant RN Verifying Infant: ObdulioLIN Sandoval Additional Verifying Personnel: LIN Lima WEIGHT/LENGTH BABY A Infant Birthweight (gm): 3765 Weight (lb): 8 Weight (oz): 5 Length (in): 19.00 Length (cm): 48.26 CORD INFORMATION BABY A No. Cord Vessels: 3 Nuchal Cord : N/A Cord Blood Taken: Yes-For Eval (Mom's Blood Type - or O+) Suction: Mouth; Nose ASSESSMENT BABY A Infant Complications: Multiple Late Decels; Other Infant Complications- Other: bpp 2/10 Physical Findings at Delivery: Within Normal Limits Respirations: Appears Normal Skin to Skin: Yes Parole Hearing Officer/ALS Called : No Transferred To: Remains with Mother BABY B INFORMATION : N/A SIGNATURES Signature: with User ID: [email or web address]
[2018-05-20] MEDS: SENNOSIDES/DOCUSATE 8.6-50 MG 1 EACH TABLET PO SCH (11:06)
[2018-05-20] MEDS: DOCUSATE SODIUM 100 MG CAPSULE PO SCH (11:06)
[2018-05-20] MEDS: PRENATAL VITAMIN W DHA CAPSULE PO SCH (11:06)
[2018-05-20] MEDS: FAMOTIDINE 20 MG TABLET PO SCH ×2 (11:06→21:11)
[2018-05-20] MEDS: FERROUS SULFATE 325 MG TABLET PO SCH (11:07)
[2018-05-20] MEDS: IBUPROFEN 800 MG TABLET PO SCH ×2 (14:51→21:11)
[2018-05-21] MEDS: FERROUS SULFATE 325 MG TABLET PO SCH ×3 (05:24→19:10)
[2018-05-21] MEDS: DOCUSATE SODIUM 100 MG CAPSULE PO SCH ×3 (05:24→19:10)
[2018-05-21] MEDS: IBUPROFEN 800 MG TABLET PO SCH ×3 (05:26→22:50)
[2018-05-21 08:18] LABS: HEMOGLOBIN 9.3 g/dL (12.0-15.5); MEAN CORPUSCULAR HEMOGLOBIN 28.4 pg (27.0-33.4); MEAN CORPUSCULAR HGB CONC 33.3 g/dL (32.0-36.0); MEAN CORPUSCULAR VOLUME 85 fl (80-97); PLATELET COUNT 185 10^3/uL (150-450); RED BLOOD COUNT 3.27 10^6/uL (3.72-5.28); RED CELL DISTRIBUTION WIDTH 15.5 % (11.5-14.0); WHITE BLOOD COUNT 12.9 10^3/uL (4.0-10.5)
--- NOTE | 2018-05-21 09:17 | PDOC PROGRESS REPORT ---
Subjective-OB Progress Note for:: 05/21/18 Subjective: OOB to nursery to see baby, voiding, ambulating, Outside to smoke at times, Physical Exam (OB) Vital Signs: Temp Pulse Resp BP Pulse Ox 97.7 F 78 16 123/60 98 05/20/18 08:54 05/20/18 08:54 05/20/18 08:54 05/20/18 08:54 05/20/18 08:54 Intake & Output 05/20/18 05/21/18 05/22/18 06:59 06:59 06:59 Intake Total 240 Balance 240 Weight 81.6 kg - PIH/Pre-Eclampsia Clonus: Negative Headache: Absent Epigastric Pain: No Visual Changes: No - Lochia Lochia Amount: Scant < 10 ml Lochia Color: Rubra/Red - Abdomen Description: Soft, Round Fundal Description: Firm Fundal Height: u/u - u/2 Objective-Diagnostic Laboratory: 05/21/18 07:40 05/21/18 07:40 WBC 12.9 H RBC 3.27 L Hgb 9.3 L Hct 28.0 L MCV 85 MCH 28.4 MCHC 33.3 RDW 15.5 H Plt Count 185 Assessment and Plan(PN) - Assessment and Plan (1) Vaginal delivery Is this a current diagnosis for this admission?: Yes (2) Acute blood loss anemia Is this a current diagnosis for this admission?: Yes (3) Smoker Is this a current diagnosis for this admission?: Yes (4) History of drug abuse Is this a current diagnosis for this admission?: Yes - Time Spent with Patient Time with patient: Less than 15 minutes Smoking Education Provided: Over 3 minutes Medications reviewed and adjusted accordingly: Yes - Disposition Anticipated Discharge: Home Within: within 24 hours
[2018-05-21] MEDS: SENNOSIDES/DOCUSATE 8.6-50 MG 1 EACH TABLET PO SCH (10:02)
[2018-05-21] MEDS: FAMOTIDINE 20 MG TABLET PO SCH ×2 (10:02→22:50)
[2018-05-21] MEDS: PRENATAL VITAMIN W DHA CAPSULE PO SCH (10:02)
[2018-05-21] MEDS: ACETAMINOPHEN WITH CODEINE #3 TABLET PO PRN (19:37)
[2018-05-22] MEDS: IBUPROFEN 800 MG TABLET PO SCH ×2 (05:20→14:13)
--- NOTE | 2018-05-22 09:34 | PDOC PROGRESS REPORT ---
Subjective-OB Progress Note for:: 05/22/18 Subjective: Aware of discharge today and baby staying. Physical Exam (OB) Vital Signs: Temp Pulse Resp BP Pulse Ox 97.9 F 68 16 98/52 L 99 05/22/18 07:37 05/22/18 07:37 05/22/18 07:37 05/22/18 07:37 05/22/18 07:37 Intake & Output 05/21/18 05/22/18 05/23/18 06:59 06:59 06:59 Intake Total 240 120 Balance 240 120 - PIH/Pre-Eclampsia Clonus: Negative Headache: Absent Epigastric Pain: No Visual Changes: No - Lochia Lochia Amount: Scant < 10 ml Lochia Color: Rubra/Red - Abdomen Description: Soft, Round Hernia Present: No Bowel Sounds: Normoactive Flatus Presence: Present Stool: Yes Fundal Description: Firm Fundal Height: u/u - u/2 Objective-Diagnostic Laboratory: 05/21/18 07:40 Assessment and Plan(PN) - Time Spent with Patient Smoking Education Provided: Over 3 minutes Medications reviewed and adjusted accordingly: Yes - Disposition Anticipated Discharge: Home
--- NOTE | 2018-05-22 09:44 | PDOC DISCHARGE SUMMARY ---
Final Diagnosis Discharge Date: 05/22/18 - Final Diagnosis (1) Delivery normal Is this a current diagnosis for this admission?: Yes (2) Drug abuse during Is this a current diagnosis for this admission?: Yes (3) History of depression Is this a current diagnosis for this admission?: Yes (4) Is this a current diagnosis for this admission?: Yes (5) Smoker Is this a current diagnosis for this admission?: Yes Discharge Data - Discharge Medication Prescriptions: Medroxyprogesterone Acet [Depo-Provera Inj 150 mg/1 ml Vial] 150 mg IM PRN PRN #1 vial PRN Reason: Home Medications: Medroxyprogesterone Acet [Depo-Provera Inj 150 mg/1 ml Vial] 150 mg IM PRN PRN #1 vial 05/22/18 Gestational Age: 39 wks Reason(s) for Admission: Onset of Labor Procedures: Ultrasound Intrapartum Procedure(s): Spontaneous Vaginal Delivery - Data Baby 1 Male at 1 minute: 8 at 5 minutes: 9 Weight: 3.77 kg Home with Mother: No Complications: Yes - Drug exposure, tachypnea - Diagnosis Test Laboratory: Temp Pulse Resp BP Pulse Ox 97.9 F 68 16 98/52 L 99 05/22/18 07:37 05/22/18 07:37 05/22/18 07:37 05/22/18 07:37 05/22/18 07:37 05/20/18 05/20/18 05/21/18 00:18 02:57 07:40 RBC 3.91 3.27 L Hgb 11.0 L 9.3 L Hct 33.0 L 28.0 L Urine Opiates Screen NEGATIVE - Discharge information/Instructions Discharge Activity: Activity As Tolerated, Balance Activity w/Rest, Pelvic Rest, Slowly Increase Activity, No tub bath Discharge Diet: Regular Disposition: HOME, SELF-CARE Follow up with: [facility] in: 4, Weeks
[2018-05-22] MEDS: FAMOTIDINE 20 MG TABLET PO SCH (10:43)
[2018-05-22] MEDS: SENNOSIDES/DOCUSATE 8.6-50 MG 1 EACH TABLET PO SCH (10:43)
[2018-05-22] MEDS: DOCUSATE SODIUM 100 MG CAPSULE PO SCH ×2 (10:43→17:21)
[2018-05-22] MEDS: FERROUS SULFATE 325 MG TABLET PO SCH ×2 (10:43→17:21)
[2018-05-22] MEDS: ACETAMINOPHEN WITH CODEINE #3 TABLET PO PRN (10:47)
[2018-05-22] MEDS: PRENATAL VITAMIN W DHA CAPSULE PO SCH (10:49)
[2018-05-22 14:54] VITALS: BP 116/64
[2018-05-22] MEDS ORDERED: MEDROXYPROGESTERONE ACET INJ 150 MG/1 ML VIAL IM ONE (15:30)
[2018-05-23 15:14] LABS: CANNABINOID CONFIRMATION UR Positive (.); COCAINE METABOLITE CONFIRM UR Positive (.)
== END 2018-05-22 18:41 | disposition home or self-care (01) | DRG 806 ==
LOC: LC 00:05 → LR 02:54 → 2S 08:50
PROVIDERS: ADMIT Obstetrics & Gynecology Gynecology; ATTEND Obstetrics & Gynecology Gynecology
PROC: 10E0XZZ Delivery of Products of Conception, External Approach (ICD-10-PCS; principal; 2018-05-20)
PROC: 10907ZC Drainage of Amniotic Fluid, Therapeutic from Products of Conception, Via Natural or Artificial Opening (ICD-10-PCS; 2018-05-20)
PROC: 4A1HXCZ Monitoring of Products of Conception, Cardiac Rate, External Approach (ICD-10-PCS; 2018-05-20)
DX: O99.324 Drug use complicating childbirth (principal); D62 Acute posthemorrhagic anemia; Z37.0 Single live birth; F14.10 Cocaine abuse, uncomplicated; F12.10 Cannabis abuse, uncomplicated; O99.334 Smoking (tobacco) complicating childbirth; F17.210 Nicotine dependence, cigarettes, uncomplicated; O90.81 Anemia of the puerperium; Z3A.39 39 weeks gestation of pregnancy
CPT/HCPCS: 36415; 76819; 80307; 80349; 80353; 81005; 85025; 85027; 86592; 86850; 86870; 86900; 86901; 90715; 94760; G0480; J1050; J2370; J2590; J3010; J3490

== ENCOUNTER 2019-10-22 12:00 | Outpatient (CLI) | payer MEDICAID ==
--- NOTE | 2019-10-22 23:33 | Non Stress Test Report ---
Non Stress Test Datetime Report Generated by CPN: 10/22/2019 23:32 DEMOGRAPHIC Test Number: 2 EGA NST: 40.1 INDICATION Indication for Study (NST) Other: Repeat NST. NR in office VITAL SIGNS Temperature - NST: 98.7 Pulse - NST: 111 RESP - NST: 16 NBPSYS NST: 104 NBPDIA NST: 63 MONITORING Monitor Explained: Monitor Explained; Test Explained; Patient Verbalized Understanding Time on Monitor: 10/22/2019 12:14 Time off Monitor: 10/22/2019 13:17 NST Duration: 63 NST INTERVENTIONS NST Interventions: PO Hydration; Reposition Patient Physician Notified NST: C Gamez BABY A: [id number] BABY A Movement : Present Contraction Frequency : occasional FHR Baseline : 135 Accelerations : 15X15 Decelerations : None Variability : Moderate 6-25bpm NST Review: Meets Criteria for Reactive NST NST Review and Verified By : GiulianaRN NST Results: Reactive NST COMMENTS NST Comments: Strip reviewed by C Gamez. orders received to DC home with kick count instructions and to RTO on [place]. NST REPORT Report Trigger: Send Report
== END 2019-10-22 13:20 | disposition home or self-care (01) ==
LOC: LC 12:00
PROVIDERS: ATTEND Obstetrics & Gynecology
DX: O36.8330 Maternal care for abnormalities of the fetal heart rate or rhythm, third trimester, not applicable or unspecified (principal); Z3A.40 40 weeks gestation of pregnancy
CPT/HCPCS: 59025

== ENCOUNTER 2019-10-22 23:31 | Outpatient (CLI) | payer MEDICAID ==
[2019-10-23 00:08] LABS: APPEARANCE,URINE CLEAR; BILIRUBIN,URINE NEGATIVE (NEGATIVE); COLOR,URINE YELLOW; GLUCOSE, URINE NEGATIVE (NEGATIVE); KETONES,URINE TRACE mg/dL (NEGATIVE); LEUKOCYTE ESTERASE,URINE NEGATIVE (NEGATIVE); NITRITE,URINE NEGATIVE (NEGATIVE); PROTEIN,URINE NEGATIVE (NEGATIVE); URINE SPECIFIC GRAVITY 1.014; UROBILINOGEN,URINE NEGATIVE mg/dL (<2.0)
[2019-10-23 00:22] LABS: URINE AMPHETAMINES SCREEN NEGATIVE; URINE BARBITURATES SCREEN NEGATIVE; URINE BENZODIAZEPINES SCREEN NEGATIVE; URINE COCAINE SCREEN NEGATIVE; URINE METHADONE SCREEN NEGATIVE; URINE PHENCYCLIDINE SCREEN NEGATIVE
[2019-10-23 00:31] LABS: URINE MARIJUANA (THC) SCREEN UNCONFIRMED POSITIVE
--- NOTE | 2019-10-23 07:10 | Non Stress Test Report ---
Non Stress Test Datetime Report Generated by CPN: 10/23/2019 07:10 DEMOGRAPHIC EGA NST: 40.1 INDICATION Indication for Study (NST) Other: lc MONITORING Monitor Explained: Monitor Explained; Test Explained; Patient Verbalized Understanding Time on Monitor: 10/22/2019 23:45 Time off Monitor: 10/23/2019 06:49 NST Duration: 424 NST INTERVENTIONS NST Interventions: PO Hydration; Reposition Patient Physician Notified NST: Dr Covarrubias BABY A Movement : Present Contraction Frequency : 3-4 FHR Baseline : 125 Accelerations : 15X15 Decelerations : None Variability : Moderate 6-25bpm NST Review: Meets Criteria for Reactive NST NST Review and Verified By : Obdulio Andrade RN NST Results: Reactive NST REPORT Report Trigger: Send Report
== END 2019-10-23 07:12 | disposition home or self-care (01) ==
LOC: LC 23:31
PROVIDERS: ATTEND Obstetrics & Gynecology
DX: O36.8330 Maternal care for abnormalities of the fetal heart rate or rhythm, third trimester, not applicable or unspecified (principal); Z3A.40 40 weeks gestation of pregnancy
CPT/HCPCS: 59025; 80307; 81005

== ENCOUNTER 2019-10-26 00:21 | Inpatient (IN) | payer MEDICAID ==
[2019-10-26] MEDS ORDERED: PENICILLIN G-K 5 MILLION UNIT VIAL ONE (00:41)
[2019-10-26] MEDS ORDERED: MISOPROSTOL 0.2 MG TABLET ONE (00:41)
[2019-10-26] MEDS ORDERED: LIDOCAINE 1% INJ-PF (10 MG/ML) 30 ML SDV ONE (00:41)
[2019-10-26] MEDS ORDERED: OXYTOCIN/0.9 % SODIUM CHLORIDE 30 UNIT/500 ML RTUINJ ONE (00:41)
[2019-10-26] MEDS ORDERED: RINGERS SOLUTION,LACTATED 1,000 ML IV ONE (01:01)
[2019-10-26] MEDS ORDERED: DEXTROSE 5%-LACTATED RINGERS 1,000 ML IV PRN (01:01)
[2019-10-26] MEDS ORDERED: PENICILLIN G POTASSIUM 5,000,000 UNIT in DEXTROSE 5%-WATER 100 ML IV ONE (01:01)
[2019-10-26 01:37] LABS: ABSOLUTE EOSINOPHILS # (AUTO) 0.4 10^3/uL (0.0-0.6); ABSOLUTE LYMPHOCYTES (AUTO) 4.5 10^3/uL (0.5-4.7); ABSOLUTE MONOCYTES (AUTO) 1.5 10^3/uL (0.1-1.4); ABSOLUTE NEUT (AUTO) 10.8 10^3/uL (1.7-8.2); BASOPHILS % (AUTO) 0.3 % (0-2); EOSINOPHILS % (AUTO) 2.1 % (0-6); HEMATOCRIT 31.9 % (36.0-47.0); HEMOGLOBIN 10.4 g/dL (12.0-15.5); LYMPHOCYTES % (AUTO) 26.4 % (13-45); MEAN CORPUSCULAR HEMOGLOBIN 28.5 pg (27.0-33.4); MEAN CORPUSCULAR HGB CONC 32.6 g/dL (32.0-36.0); MEAN CORPUSCULAR VOLUME 87 fl (80-97); MONOCYTES % (AUTO) 8.5 % (3-13); PLATELET COUNT 223 10^3/uL (150-450); RED BLOOD COUNT 3.66 10^6/uL (3.72-5.28); RED CELL DISTRIBUTION WIDTH 15.6 % (11.5-14.0); SEGMENTED NEUTROPHILS % (AUTO) 62.7 % (42-78); TOTAL CELLS COUNTED % (AUTO) 100 %; WHITE BLOOD COUNT 17.2 10^3/uL (4.0-10.5)
[2019-10-26 01:40] LABS: APPEARANCE,URINE SLIGHTLY-CLOUDY; BILIRUBIN,URINE NEGATIVE (NEGATIVE); COLOR,URINE YELLOW; GLUCOSE, URINE NEGATIVE (NEGATIVE); KETONES,URINE NEGATIVE (NEGATIVE); LEUKOCYTE ESTERASE,URINE SMALL (NEGATIVE); NITRITE,URINE NEGATIVE (NEGATIVE); PROTEIN,URINE NEGATIVE (NEGATIVE); URINE SPECIFIC GRAVITY 1.011; UROBILINOGEN,URINE NEGATIVE mg/dL (<2.0)
[2019-10-26] MEDS ORDERED: FENTANYL/BUPIVACAINE/NS/PF 300 MCG/150 ML RTUINJ EPI ONE (01:47)
[2019-10-26] MEDS ORDERED: EPHEDRINE SULFATE INJ 50 MG/1 ML AMPULE ONE (01:47)
[2019-10-26] MEDS ORDERED: ROPIVACAINE HCL 0.2% INJ/PF (2 MG/ML) 20 ML SDV ONE (01:48)
[2019-10-26 02:06] LABS: URINE AMPHETAMINES SCREEN NEGATIVE; URINE BARBITURATES SCREEN NEGATIVE; URINE BENZODIAZEPINES SCREEN NEGATIVE; URINE COCAINE SCREEN NEGATIVE; URINE METHADONE SCREEN NEGATIVE; URINE PHENCYCLIDINE SCREEN NEGATIVE
[2019-10-26 02:49] LABS: URINE MARIJUANA (THC) SCREEN UNCONFIRMED POSITIVE
--- NOTE | 2019-10-26 03:16 | Admission Physical ---
Datetime Report Generated by CPN: 10/26/2019 03:16 CURRENT ADMISSION Chief Complaint: Uterine Contractions; Suspected Ruptured Membranes Indication for Induction: Not Applicable Admit Impression : Term, Intrauterine ; Active Labor; Ruptured Membranes Admit Plan: Admit to Unit; Initiate Labor Protocol ALLERGIES Medication Allergies: No Medication Allergies: No Known Allergies (10/26/2019) Latex: No Latex Allergies OBSTETRICAL HISTORY EDC: 10/21/2019 00:00 : 5 Para: 3 Term: 3 : 0 SAB: 1 IAB: 0 Ectopic: 0 Livin Cesareans: 0 Multiple Births: 0 Gestational Diabetes: Unknown Rh Sensitization: No Incompetent Cervix: No RAHAT: No Infertility: No ART Treatment: No Uterine Anomaly: No IUGR: No Hx Previous C/S: No Macrosomia: No Hx Loss/Stillborn: No PIH: No Hx : No Placenta Previa/Abruption: No Depression/PP Depression: No PTL/PROM: No Post Hemorrhage: No Current Procedures: Ultrasound; NST Obstetrical History Comments: G1: G2: G3: G4: G5: current (possible non-compliant GDM) SEE RECORDS Alcohol: No Marijuana : Yes Marijuana Frequency: Occasional Years Used: 11 Last Used: 10/19/2019 00:00 Previous Treatment: None Cocaine: No Other Illicit Drugs: No Cigarettes: Current Some Day Smoker. 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 Molar extraction 09/16/2019 INFECTIOUS HISTORY Gonorrhea: No Genital Herpes: No Chlamydia: No Tuberculosis: No Syphilis: No Hepatitis: No HIV/AIDS Exposure: No Rash or Viral Illness: No HPV: No PHYSICAL EXAM General: Normal HEENT: Normal Neurologic: Normal Thyroid: Normal Heart: Normal Lungs: Normal Breast: Normal Back: Normal Abdomen: Normal Genitourinary Exam: Normal Extremities: Normal DTRs: Normal Pelvic Type: Adequate Vital Signs: Reviewed; Within Normal Limits VAGINAL EXAM Dilatation: 7 Effacement: 90 Station: -1 MEMBRANES Membranes: Ruptured FETUS A EGA: 40.5 Monitoring: External US FHR- Baseline: 110 Variability: Moderate 6-25bpm Accelerations: 15X15 Decelerations: None FHR Category: Category I Estimated Weight (gm): 3400 Presentation: Vertex PLANS FOR LABOR AND DELIVERY Labor and Delivery: None Pain Management: Epidural Feeding Preference: Formula Benefit of Breast Feed Discussed: Yes Circumcision: N/A INFORMED CONSENT Signature: with User ID: [email or web address]
[2019-10-26] MEDS ORDERED: DIPHENHYDRAMINE HCL 25 MG CAPSULE PO PRN (03:32)
[2019-10-26] MEDS ORDERED: GLYCERIN/WITCH HAZEL LEAF 1 EACH MED..WIPE TP PRN (03:32)
[2019-10-26] MEDS ORDERED: PSEUDOEPHEDRINE HCL 30 MG TABLET PO PRN (03:32)
[2019-10-26] MEDS ORDERED: ACETAMINOPHEN 650 MG SUPP.RECT PR PRN (03:32)
[2019-10-26] MEDS ORDERED: DIPH/PERTUSS(ACELL)/TETANUS VAC/PF 0.5 ML SYR (>=10YO) IM PRN (03:32)
[2019-10-26] MEDS ORDERED: ACETAMINOPHEN WITH CODEINE #3 TABLET PO PRN (03:32)
[2019-10-26] MEDS ORDERED: MEASLES,MUMPS&RUBELLA VACC/PF 0.5 ML VIAL SUBCUT PRN (03:32)
[2019-10-26] MEDS ORDERED: OXYTOCIN/0.9 % SODIUM CHLORIDE 30 UNIT/500 ML RTUINJ IV PRN (03:32)
[2019-10-26] MEDS ORDERED: PROMETHAZINE HCL 25 MG TABLET PO PRN (03:32)
[2019-10-26] MEDS ORDERED: ZOLPIDEM TARTRATE 5 MG TABLET PO PRN (03:32)
[2019-10-26] MEDS ORDERED: NA PHOS,M-B/NA PHOS,DI-BA (ADULT) 133 ML ENEMA PR PRN (03:32)
[2019-10-26] MEDS ORDERED: PROMETHAZINE HCL 25 MG SUPP.RECT PR PRN (03:32)
[2019-10-26] MEDS ORDERED: BENZOCAINE/MENTHOL AEROSOL SPRAY 56 ML TOP PRN (03:32)
[2019-10-26] MEDS ORDERED: PROMETHAZINE HCL INJ 25 MG/1 ML VIAL IV PRN (03:32)
[2019-10-26] MEDS ORDERED: MAGNESIUM HYDROXIDE SUSP 30 ML UDCUP PO PRN (03:32)
[2019-10-26] MEDS ORDERED: DIBUCAINE 1% OINTMENT 28 GM TP PRN (03:32)
[2019-10-26] MEDS ORDERED: PENICILLIN G POTASSIUM 2,500,000 UNIT in DEXTROSE 5%-WATER 50 ML IV SCH (05:02)
[2019-10-26] MEDS: IBUPROFEN 800 MG TABLET PO SCH ×3 (05:45→21:20)
--- NOTE | 2019-10-26 05:50 | Birth Certificate Data ---
Cert Data Datetime Report Generated by CPN: 10/26/2019 05:50 CERTIFICATE DATA 47a. Care: Yes (10/20/2019 03:38:Arcelia Arce RN) 47b. Date of First Visit: 06/05/2019 00:00 (10/20/2019 03:38:Arcelia Arce RN) 47c. Date of Last Visit: 10/17/2019 00:00 (10/20/2019 03:38:Arcelia Arce RN) 47d. Number of Visits: 8 (10/20/2019 03:38:Arcelia Arce RN) 48a. Number of Prev Live Births: 3 (10/20/2019 03:38:Arcelia Arce RN) 48b. Now Livin (10/20/2019 03:38:Arcelia Arce RN) 48c. Live Births Now : 0 (10/20/2019 03:38:QS system process) 48d. Date of Last Live : 05/20/2018 00:00 (10/20/2019 03:38:Arcelia Arce RN) 48e. Losses: 1 (10/20/2019 03:38:Arcelia Arce RN) RISK FACTORS IN THIS 49a. Diabetes: No (10/20/2019 03:38:Arcelia Arce RN) 49b. Hypertension: No (10/20/2019 03:38:Arcelia Arce RN) 49c. Previous Births: 0 (10/20/2019 03:38:Arcelia Arce RN) 49d. Stillborns: No (10/20/2019 03:38:Arcelia Arce RN) 49d. IUGR: No (10/20/2019 03:38:Arcelia Arce RN) 49e. Infertility Treatment: No (10/20/2019 03:38:Arcelia Arce RN) 49f. Previous Cesareans: 0 (10/20/2019 03:38:Arcelia Arce RN) Mother's Height 50b. Height Inches: 65 (10/20/2019 03:23:QS system process) Mother's Weight 51a. Pre- Weight (lbs): 151 (10/20/2019 03:38:Arcelia Arce RN) 51b. Weight at Delivery (lbs): 183 (10/26/2019 05:24:QS system process) 52. Dt Last Normal Menses Began: 01/01/2019 00:00 (10/20/2019 03:38:Arcelia Arce RN) Infections Present/Treated 53a. Gonorrhea: No (10/20/2019 03:38:Arcelia Arce RN) Results this Hospital Visit : Negative (10/20/2019 03:38:Arcelia Arce RN) 53b. Syphilis: No (10/20/2019 03:38:Arcelia Arce RN) 53c. Chlamydia: No (10/20/2019 03:38:Arcelia Arce RN) Results this Hospital Visit: Negative (10/20/2019 03:38:Arcelia Arce RN) 53d. Hepatitis B: No (10/20/2019 03:38:Arcelia Arce RN) Results this Hospital Visit: Negative (10/20/2019 03:38:Arcelia Arce RN) 53e. Hepatitis C: Negative (10/20/2019 03:38:MYRA Andres) 53h. Mother Tested for HBsAG: Yes (10/20/2019 03:38:MYRA Andres) 53i. Date Tested: 06/05/2019 00:00 (10/20/2019 03:38:Arcelia Arce RN) 53j. Test Result: Negative (10/20/2019 03:38:Arcelia Arce RN) Obstetric Procedures 54a, b, c. Obstetric Procedures: Ultrasound; NST (10/20/2019 03:38:Arcelia Arce RN) Cigarette Smoking 55a. 3 Months Before Preg - Ci (10/20/2019 03:38:Arcelia Arce RN) 55b. 1st Trimester of Preg- Ci (10/20/2019 03:38:Arcelia Arce RN) 55c. 2nd Trimester of Preg- Ci (10/20/2019 03:38:Arcelia Arce RN) 55d. 3rd Trimester of Preg- Ci (10/20/2019 03:38:Arcelia Arce RN) Onset of Labor 56a. PROM >12 Hrs: 4.33 (10/20/2019 03:38:QS system process) 56b. Precipitous Labor <3 Hrs: 2 (10/20/2019 03:38:QS system process) 56c. Prolonged Labor > 20 Hrs: 2 (10/20/2019 03:38:QS system process) 57a. Induction of Labor: N/A (10/20/2019 03:38:Ashlie Burris RN) 57c. Non-Vertex Presentation A: Vertex (10/20/2019 03:38:Ashlie Burris RN) 57d. Steroids - Lung Mat: None (10/20/2019 03:38:Ashlie Burris RN) 57d. Steroids - Lung Mat: Not Applicable (10/20/2019 03:38:Ashlie Burris RN) 57e. Antibiotics During Labor: 10/26/2019 00:55 (10/20/2019 03:38:Ashlie Burris RN) 57f. Mat [place] or Temp >100.4: 98.3 (10/20/2019 03:38:Gilda Troncoso RN) 57g. Moderate/Heavy Meconium: Heavy Meconium (10/20/2019 03:38:Ashlie Burris RN) 57h. Intolerance of Labor: N/A (10/20/2019 03:38:Ashlie Burris RN) : N/A (10/20/2019 03:38:Ashlie Burris RN) 57i. Epidural/Spinal Anesthesia: Epidural (10/20/2019 03:38:Ashlie Burris RN) Method of Delivery 58a. Forceps - Unsuccessful A: N/A (10/20/2019 03:38:Ashlie Burris RN) 58b. Vacuum - Unsuccessful A: N/A (10/20/2019 03:38:Ashlie Burris RN) 58c. Presentation at 58c. Presentation at - A : Vertex (10/20/2019 03:38:Ashlie Burris RN) 58c. Presentation at - A : N/A (10/20/2019 03:38:Ashlie Burris RN) 58c. Presentation at - A : Cephalic (10/26/2019 00:39:Gilda Troncoso RN) Final Route and Method of Del 58d. Baby A Route/Delivery: Vaginal (10/26/2019 03:20:Gilda Troncoso RN) 58e. Trial of Labor Attempted: No (10/20/2019 03:38:Ashlie Ring RN) 58e. Trial of Labor Attempted A: N/A (10/20/2019 03:38:Ashlie Ring, RN) 58e. Trial of Labor Attempted B: N/A (10/20/2019 03:38:Ashlie Ring, RN) Maternal Morbidity 59b. 3rd or 4th Degree Lacs: None (10/20/2019 03:38:Aure Khan MD ([facility])) Birthweight Baby A: 3472 (10/20/2019 03:38:Mahnaz Park RN) 60a. Pounds : 7 (10/20/2019 03:38:QS system process) 60b. Ounces: 10 (10/20/2019 03:38:QS system process) 61. GA at Delivery Baby A: 40.5 (10/20/2019 03:38:Gilda Troncoso RN) : Full Term- 39- 40.6 Weeks (10/20/2019 03:38:QS system process) 62a. 5 Minute Baby A: 9 (10/20/2019 03:38:QS system process)
--- NOTE | 2019-10-26 05:50 | Delivery Summary ---
Del Sum A-C Datetime Report Generated by CPN: 10/26/2019 05:50 DELIVERY PERSONNEL DELIVERY PERSONNEL: [id number] Delivery Doctor:: Aure Khan MD Labor and Delivery Nurse:: Gilda Troncoso RN Nursery Nurse:: Hanane Leonard RN Suction Dredge Dumping Supervisor/RETAIL SALES VITAMIN CONSULTANT: Ching Ross, ST MATERNAL INFORMATION Delivery Anesthesia: Epidural Medications After Delivery: Pitocin Bolus-Please Comment; Pitocin 30 Units in 500ml NS/D5W Estimated Blood Loss (ml): 100 Delivery QBL: 100 Maternal Complications: None LABOR SUMMARY EDC: 10/21/2019 00:00 No. Babies in Womb: 1 Attempted: No Labor Anesthesia: Epidural LABOR INFORMATION Reason for Induction: Not Applicable Onset of Labor: 10/26/2019 00:39 Complete Dilatation: 10/26/2019 03:09 Oxytocin: N/A Group B Beta Strep: positive Antibiotics # of Doses: 1 Antibiotics Time of Last Dose: 10/26/2019 00:55 Steroids Given: None Reason Steroids Not Administered: Not Applicable MEMBRANES Membranes Rupture Method: Spontaneous Rupture of Membranes: 10/25/2019 23:00 Length of Rupture (hr): 4.33 Amniotic Fluid Color: Heavy Meconium Amniotic Fluid Amount: Copious STAGES OF LABOR Stage 1 hr: 2 Stage 1 min: 30 Stage 2 hr: 0 Stage 2 min: 11 Stage 3 hr: 0 Stage 3 min: 6 Total Time in Labor hr: 2 Total Time in Labor min: 47 VAGINAL DELIVERY Episiotomy: None Laceration #1: None Laceration Extension #1: N/A Laceration Repair: Not Applicable Sponge Count Correct: N/A Sharps Count Correct: N/A CSECTION DELIVERY Primary Indication: N/A Secondary Indication: N/A CSection Urgency: n/a CSection Incidence: N/A Labor: N/A Elective: N/A CSection Incision: N/A BABY A INFORMATION Infant Delivery Date/Time: 10/26/2019 03:20 Method of Delivery: Vaginal Nurse Controlled Delivery: No Born in Route : No : N/A Forceps: N/A Vacuum Extraction: N/A Shoulder Dystocia : No PRESENTATION/POSITION BABY A Presentation: Cephalic Cephalic Presentation: Vertex Vertex Position: Left Occipital Anterior Breech Presentation: N/A PLACENTA INFORMATION BABY A Placenta Delivery Time : 10/26/2019 03:26 Placenta Method of Delivery: Spontaneous Placenta Status: Delivered SCORES BABY A Heart Rate 1 min: >100 bpm Resp Effort 1 min: Good Cry Reflex Irritability 1 min: Cough or Sneeze or Pulls Away Muscle Tone 1 min: Active Motion Color 1 min: Blue/Pale Resuscitation Effort 1 min: Tactile Stimulation SCORE 1 MIN: 8 Heart Rate 5 min: >100 bpm Resp Effort 5 min: Good Cry Reflex Irritability 5 min: Cough or Sneeze or Pulls Away Muscle Tone 5 min: Active Motion Color 5 min: Body [place], Extremities Blue Resuscitation Effort 5 min: Tactile Stimulation SCORE 5 MIN: 9 INFORMATION BABY A Gestational Age at Delivery: 40.5 Gestational Status: Full Term- 39- 40.6 Weeks Outcome : Liveborn Condition : Stable Infant Sex: Female IDENTIFICATION BABY A Verification Date/Time: 10/26/2019 03:49 ID Band Number: [id number] Mother's Name Verified: Yes RN Verifying Infant: oJsafat Troncoso RN/ Rafy Tiffanieheidi RN WEIGHT/LENGTH BABY A Birthweight (gm): 3472 Weight (lb): 7 Infant Weight (oz): 10 Length (in): 20.50 Length (cm): 52.07 CORD INFORMATION BABY A No. Cord Vessels: 3 Nuchal Cord : N/A Cord Blood Taken: Yes-For Eval (Mom's Blood Type - or O+) Infant Suction: Mouth; Nose ASSESSMENT BABY A Complications: Meconium; Other Complications- Other: terminal meconium Physical Findings at Delivery: Other Physical Findings- Other: See full nursery general counsel Respirations: Appears Normal Skin to Skin: Yes Machine Scallop Cutter/ALS Called : No Infant Care By: Alfredo Leonard RN Transferred To: Remains with Mother BABY B INFORMATION : N/A SIGNATURES Signature: with User ID: DoAnderson
[2019-10-26] MEDS: DOCUSATE SODIUM 100 MG CAPSULE PO SCH ×2 (09:22→17:52)
[2019-10-26] MEDS: PRENATAL VITAMIN W DHA CAPSULE PO SCH (09:22)
[2019-10-26] MEDS: SENNOSIDES/DOCUSATE 8.6-50 MG 1 EACH TABLET PO SCH (09:22)
[2019-10-26] MEDS: FERROUS SULFATE 325 MG TABLET PO SCH ×2 (09:22→17:52)
[2019-10-26] MEDS: FAMOTIDINE 20 MG TABLET PO SCH ×2 (09:22→21:20)
[2019-10-26] MEDS: ACETAMINOPHEN WITH CODEINE #3 TABLET PO PRN ×3 (09:26→19:14)
--- NOTE | 2019-10-26 09:55 | PDOC PROGRESS REPORT ---
Subjective-OB Progress Note for:: 10/26/19 Subjective: Doing well, no c/o, friend at BS, voiding Physical Exam (OB) Vital Signs: Temp Pulse Resp BP Pulse Ox 97.5 F 68 18 119/65 100 10/26/19 05:27 10/26/19 05:27 10/26/19 05:27 10/26/19 05:27 10/26/19 05:27 Intake & Output 10/25/19 10/26/19 10/27/19 06:59 06:59 06:59 Output Total 650 Balance -650 Weight 83.3 kg - PIH/Pre-Eclampsia Headache: Absent Epigastric Pain: No Visual Changes: No - Maternal Morbidity 59. Maternal Morbidity (serious complications experinced by the mother associated with labor and delivery: None of the above - Lochia Lochia Amount: Small 10-25 ml Lochia Color: Rubra/Red - Abdomen Description: Soft, Round Fundal Description: Firm, Midline Fundal Height: u/u - u/2 Objective-Diagnostic Laboratory: 10/26/19 01:17 10/26/19 10/26/19 10/26/19 00:48 01:17 01:17 WBC 17.2 H RBC 3.66 L Hgb 10.4 L Hct 31.9 L MCV 87 MCH 28.5 MCHC 32.6 RDW 15.6 H Plt Count 223 Seg Neutrophils % 62.7 Urine Color YELLOW Urine Appearance SLIGHTLY-CLOUDY Urine pH 6.0 Ur Specific [place] 1.011 Urine Protein NEGATIVE Urine Glucose (UA) NEGATIVE Urine Ketones NEGATIVE Urine Blood SMALL H Urine Nitrite NEGATIVE Ur Leukocyte Esterase SMALL H Blood Type B NEGATIVE Antibody Screen POSITIVE Assessment and Plan(PN) - Assessment and Plan (1) Rh negative status during Qualifiers: Trimester: first trimester Qualified Code(s): O26.891 - Other specified related conditions, first trimester; Z67.91 - Unspecified blood type, Rh negative Is this a current diagnosis for this admission?: Yes (2) History of depression Is this a current diagnosis for this admission?: Yes (3) Smoker Is this a current diagnosis for this admission?: Yes (4) Drug abuse during Is this a current diagnosis for this admission?: Yes (5) Delivery normal Is this a current diagnosis for this admission?: Yes (6) Acute blood loss anemia Is this a current diagnosis for this admission?: Yes - Time Spent with Patient Time with patient: Less than 15 minutes Medications reviewed and adjusted accordingly: Yes - Disposition Anticipated Discharge Disposition: Home, Self Care Anticipated Discharge Timeframe: within 48 hours
[2019-10-27] MEDS: ACETAMINOPHEN WITH CODEINE #3 TABLET PO PRN ×5 (01:06→23:50)
[2019-10-27] MEDS: IBUPROFEN 800 MG TABLET PO SCH ×3 (06:08→21:16)
[2019-10-27 07:21] LABS: HEMATOCRIT 26.6 % (36.0-47.0); HEMOGLOBIN 8.8 g/dL (12.0-15.5); MEAN CORPUSCULAR HEMOGLOBIN 28.7 pg (27.0-33.4); MEAN CORPUSCULAR HGB CONC 33.2 g/dL (32.0-36.0); MEAN CORPUSCULAR VOLUME 87 fl (80-97); PLATELET COUNT 193 10^3/uL (150-450); RED BLOOD COUNT 3.08 10^6/uL (3.72-5.28); WHITE BLOOD COUNT 14.2 10^3/uL (4.0-10.5)
[2019-10-27] MEDS: FAMOTIDINE 20 MG TABLET PO SCH ×2 (09:08→21:17)
[2019-10-27] MEDS: DOCUSATE SODIUM 100 MG CAPSULE PO SCH ×2 (09:08→17:39)
[2019-10-27] MEDS: PRENATAL VITAMIN W DHA CAPSULE PO SCH (09:08)
[2019-10-27] MEDS: FERROUS SULFATE 325 MG TABLET PO SCH ×2 (09:09→17:28)
[2019-10-27] MEDS: SENNOSIDES/DOCUSATE 8.6-50 MG 1 EACH TABLET PO SCH (09:09)
--- NOTE | 2019-10-27 11:59 | PDOC PROGRESS REPORT ---
Subjective-OB Progress Note for:: 10/27/19 - PP Day #1, UOB, voiding, B negative, rubella immune, Pt c/o pain around epidural site and back being sore today Physical Exam (OB) Vital Signs: Temp Pulse Resp BP Pulse Ox 97.3 F 69 15 101/44 L 98 10/27/19 09:46 10/27/19 07:54 10/27/19 07:54 10/27/19 07:54 10/27/19 07:54 Intake & Output 10/26/19 10/27/19 10/28/19 06:59 06:59 06:59 Output Total 650 Balance -650 Weight 83.3 kg - General General Appearance: Appears well, Alert - PIH/Pre-Eclampsia DTR's: 1 + Clonus: Negative Headache: Absent Epigastric Pain: No Visual Changes: No - Maternal Morbidity 59. Maternal Morbidity (serious complications experinced by the mother associated with labor and delivery: None of the above - Lochia Lochia Amount: Small 10-25 ml Lochia Color: Rubra/Red - Abdomen Description: Soft, Round Hernia Present: No Fundal Description: Firm, Midline Fundal Height: u/u - u/2 - Respiratory Respiratory Status: No respiratory distress - Abdominal Distension: No distension Tenderness: Nontender - Genitourinary Genitourinary Note: voiding - Extremities Upper extremity: Normal inspection Lower extremities: Normal inspection - Skin Skin Temperature: Warm Skin Moisture: Dry - epidural site examined, no signs of redness or edema at insertion site, no drainage Objective-Diagnostic Laboratory: 10/27/19 06:46 10/27/19 06:46 WBC 14.2 H RBC 3.08 L Hgb 8.8 L Hct 26.6 L MCV 87 MCH 28.7 MCHC 33.2 RDW 16.0 H Plt Count 193 Assessment and Plan(PN) - Assessment and Plan (1) Rh negative status during Qualifiers: Trimester: third trimester Qualified Code(s): O26.893 - Other specified related conditions, third trimester; Z67.91 - Unspecified blood type, Rh negative Is this a current diagnosis for this admission?: Yes (2) Acute blood loss anemia Is this a current diagnosis for this admission?: Yes (3) Delivery normal Is this a current diagnosis for this admission?: Yes (4) Drug abuse during Is this a current diagnosis for this admission?: Yes Plan:: Routine PP orders, ice pack or heat pack to her back. Ambulation encouraged - Time Spent with Patient Time with patient: Less than 15 minutes Medications reviewed and adjusted accordingly: Yes - Disposition Anticipated Discharge Disposition: Home, Self Care Anticipated Discharge Timeframe: within 24 hours Final Diagnosis Discharge Date: 10/27/19 - Final Diagnosis (1) Rh negative status during Is this a current diagnosis for this admission?: Yes (2) Acute blood loss anemia Is this a current diagnosis for this admission?: Yes (3) Delivery normal Is this a current diagnosis for this admission?: Yes (4) Drug abuse during Is this a current diagnosis for this admission?: Yes
[2019-10-28] MEDS: ACETAMINOPHEN WITH CODEINE #3 TABLET PO PRN ×2 (03:59→08:21)
[2019-10-28] MEDS: IBUPROFEN 800 MG TABLET PO SCH (05:24)
[2019-10-28 08:13] VITALS: BP 96/47
[2019-10-28] MEDS: PRENATAL VITAMIN W DHA CAPSULE PO SCH (09:10)
[2019-10-28] MEDS: FAMOTIDINE 20 MG TABLET PO SCH (09:10)
[2019-10-28] MEDS: DOCUSATE SODIUM 100 MG CAPSULE PO SCH (09:10)
[2019-10-28] MEDS: SENNOSIDES/DOCUSATE 8.6-50 MG 1 EACH TABLET PO SCH (09:10)
[2019-10-28] MEDS: FERROUS SULFATE 325 MG TABLET PO SCH (09:11)
--- NOTE | 2019-10-28 12:48 | PDOC DISCHARGE SUMMARY ---
Impression - Admit/DC Date/PCP Admission Date/Primary Care Provider: 10/26/19 00:40 ANKITA HOWE MD Discharge Date: 10/28/19 - Discharge Diagnosis (1) Delivery normal Is this a current diagnosis for this admission?: Yes (2) Drug abuse during Is this a current diagnosis for this admission?: Yes - Additional Information Discharge Diet: Regular Discharge Activity: Balance Activity w/Rest, Pelvic Rest Referrals: ANKITA HOWE MD [Primary Care Provider] - Prescriptions: Ibuprofen [Motrin 800 mg Tablet] 800 mg PO Q8HP PRN #60 tablet PRN Reason: Acetaminophen with Codeine [Tylenol #3 Tablet] 1 each PO Q4HP PRN #14 tablet PRN Reason: Home Medications: Acetaminophen with Codeine [Tylenol #3 Tablet] 1 each PO Q4HP PRN #14 tablet 10/28/19 Docusate Sodium [Colace 100 mg Capsule] 100 mg PO BID capsule 10/28/19 Ferrous Sulfate [Feosol 325 mg Tablet] 325 mg PO BID tablet 10/28/19 Ibuprofen [Motrin 800 mg Tablet] 800 mg PO Q8HP PRN #60 tablet 10/28/19 Hospital Course 59. Maternal Morbidity (serious complications experinced by the mother associated with labor and delivery: None of the above Results Laboratory Results: WBC 14.2 10^3/uL (4.0-10.5) H 10/27/19 06:46 RBC 3.08 10^6/uL (3.72-5.28) L 10/27/19 06:46 Hgb 8.8 g/dL (12.0-15.5) L 10/27/19 06:46 Hct 26.6 % (36.0-47.0) L 10/27/19 06:46 MCV 87 fl (80-97) 10/27/19 06:46 MCH 28.7 pg (27.0-33.4) 10/27/19 06:46 MCHC 33.2 g/dL (32.0-36.0) 10/27/19 06:46 RDW 16.0 % (11.5-14.0) H 10/27/19 06:46 Plt Count 193 10^3/uL (150-450) 10/27/19 06:46 Lymph % (Auto) 26.4 % (13-45) 10/26/19 01:17 [place] % (Auto) 8.5 % (3-13) 10/26/19 01:17 Eos % (Auto) 2.1 % (0-6) 10/26/19 01:17 Baso % (Auto) 0.3 % (0-2) 10/26/19 01:17 Absolute Neuts (auto) 10.8 10^3/uL (1.7-8.2) H 10/26/19 01:17 Absolute Lymphs (auto) 4.5 10^3/uL (0.5-4.7) 10/26/19 01:17 Absolute Monos (auto) 1.5 10^3/uL (0.1-1.4) H 10/26/19 01:17 Absolute Eos (auto) 0.4 10^3/uL (0.0-0.6) 10/26/19 01:17 Absolute Basos (auto) 0.0 10^3/uL (0.0-0.2) 10/26/19 01:17 Seg Neutrophils % 62.7 % (42-78) 10/26/19 01:17 Urine Color YELLOW 10/26/19 00:48 Urine Appearance SLIGHTLY-CLOUDY 10/26/19 00:48 Urine pH 6.0 (5.0-9.0) 10/26/19 00:48 Ur Specific [place] 1.011 10/26/19 00:48 Urine Protein NEGATIVE mg/dL (NEGATIVE) 10/26/19 00:48 Urine Glucose (UA) NEGATIVE mg/dL (NEGATIVE) 10/26/19 00:48 Urine Ketones NEGATIVE mg/dL (NEGATIVE) 10/26/19 00:48 Urine Blood SMALL (NEGATIVE) H 10/26/19 00:48 Urine Nitrite NEGATIVE (NEGATIVE) 10/26/19 00:48 Urine Bilirubin NEGATIVE (NEGATIVE) 10/26/19 00:48 Urine Urobilinogen NEGATIVE mg/dL (<2.0) 10/26/19 00:48 Ur Leukocyte Esterase SMALL (NEGATIVE) H 10/26/19 00:48 Urine Ascorbic Acid NEGATIVE (NEGATIVE) 10/26/19 00:48 Urine Opiates Screen NEGATIVE 10/26/19 00:48 Urine Methadone Screen NEGATIVE 10/26/19 00:48 Ur Barbiturates Screen NEGATIVE 10/26/19 00:48 Ur Phencyclidine Scrn NEGATIVE 10/26/19 00:48 Ur Amphetamines Screen NEGATIVE 10/26/19 00:48 U Benzodiazepines Scrn NEGATIVE 10/26/19 00:48 Urine Cocaine Screen NEGATIVE 10/26/19 00:48 U Marijuana (THC) Screen UNCONFIRMED POSITIVE 10/26/19 00:48 RPR NONREACTIVE (NONREACTIVE) 10/26/19 01:17 Blood Type B NEGATIVE 10/27/19 06:46 Antibody Screen POSITIVE 10/26/19 01:17 Antibody Identification RHOGAM INDUCED ANTI-D 10/26/19 01:17 Screen NEGATIVE 10/27/19 06:46 Plan Plan of Treatment: follow up in 4 weeks at [facility] for post check
[2019-10-28] MEDS ORDERED: MEDROXYPROGESTERONE ACET INJ 150 MG/1 ML VIAL IM ONE (13:00)
== END 2019-10-28 13:09 | disposition home or self-care (01) | DRG 806 ==
LOC: LC 00:21 → LR 00:40 → 2S 05:22
PROVIDERS: ADMIT Obstetrics & Gynecology; ATTEND Obstetrics & Gynecology
PROC: 10E0XZZ Delivery of Products of Conception, External Approach (ICD-10-PCS; principal; 2019-10-26)
PROC: 3E0234Z Introduction of Serum, Toxoid and Vaccine into Muscle, Percutaneous Approach (ICD-10-PCS; 2019-10-27)
DX: O99.824 Streptococcus B carrier state complicating childbirth (principal); D62 Acute posthemorrhagic anemia; Z37.0 Single live birth; O26.893 Other specified pregnancy related conditions, third trimester; O99.324 Drug use complicating childbirth; F19.10 Other psychoactive substance abuse, uncomplicated; O99.334 Smoking (tobacco) complicating childbirth; O90.81 Anemia of the puerperium; F17.210 Nicotine dependence, cigarettes, uncomplicated; Z67.21 Type B blood, Rh negative; Z11.59 Encounter for screening for other viral diseases; Z3A.40 40 weeks gestation of pregnancy
CPT/HCPCS: 1967; 36415; 80307; 80349; 81005; 85025; 85027; 85461; 86592; 86850; 86870; 86900; 86901; 90715; 94760; G0480; J1050; J2540; J2590; J2790; J2795; J3010; J3490

== ENCOUNTER 2020-01-01 08:16 | Day surgery (SDC) | payer MEDICAID ==
[2020-01-01 09:04] LABS: HEMATOCRIT 39.3 % (36.0-47.0); HEMOGLOBIN 13.2 g/dL (12.0-15.5); MEAN CORPUSCULAR HEMOGLOBIN 30.2 pg (27.0-33.4); MEAN CORPUSCULAR HGB CONC 33.7 g/dL (32.0-36.0); MEAN CORPUSCULAR VOLUME 90 fl (80-97); PLATELET COUNT 256 10^3/uL (150-450); RED BLOOD COUNT 4.39 10^6/uL (3.72-5.28); WHITE BLOOD COUNT 7.7 10^3/uL (4.0-10.5)
[2020-01-01] MEDS ORDERED: MIDAZOLAM 2 MG/2 ML INJ ONE (09:47)
[2020-01-01] MEDS ORDERED: FENTANYL CITRATE INJ/PF 100 MCG/2 ML AMPUL ONE (09:47)
[2020-01-01] MEDS ORDERED: PROPOFOL INJ 200 MG/20 ML VIAL IV ONE (09:47)
[2020-01-01] MEDS ORDERED: DIPHENHYDRAMINE HCL 50 MG/ML VIAL IV PRN (10:25)
[2020-01-01] MEDS ORDERED: MEPERIDINE HCL/PF INJ 25 MG/1 ML DISP.SYRIN IV PRN (10:25)
[2020-01-01] MEDS ORDERED: FENTANYL CITRATE INJ/PF 100 MCG/2 ML AMPUL IV PRN ×3 (10:25)
[2020-01-01] MEDS ORDERED: PROMETHAZINE HCL INJ 25 MG/1 ML VIAL IV PRN ×2 (10:25)
[2020-01-01] MEDS ORDERED: RINGERS SOLUTION,LACTATED 1,000 ML IV PRN (11:04)
[2020-01-01] MEDS ORDERED: IBUPROFEN 800 MG TABLET PO PRN (11:04)
[2020-01-01] MEDS ORDERED: OXYCODONE-ACETAMINOPHEN 5-325 MG TABLET PO PRN (11:04)
[2020-01-01] MEDS ORDERED: KETOROLAC TROMETHAMINE INJ/PF 30 MG/1 ML SDV IV PRN (11:04)
--- NOTE | 2020-01-01 11:10 | Discharge Summary ---
Discharge Summary (SDC) - Discharge Final Diagnosis: Undesired fertility Date of Surgery: 01/01/20 Discharge Date: 01/01/20 Condition: Stable Prescriptions: Oxycodone HCl/Acetaminophen [Percocet 5-325 mg Tablet] 1 tab PO Q4HP PRN #10 tablet PRN Reason: Ibuprofen [Motrin 800 mg Tablet] 800 mg PO Q8H PRN #60 tablet PRN Reason: Referrals: ANKITA HOWE MD [Primary Care Provider] - Discharge Diet: As Tolerated Respiratory Treatments at Home: Deep Breathing/Coughing Discharge Activity: Balance Activity w/Rest, No Driving, Pelvic Rest Home Care Assistance: None Needed Report the Following to Your Physician Immediately: Shortness of Breath, Nausea, Vomiting, Increase in Pain
[2020-01-01] MEDS ORDERED: OXYCODONE-ACETAMINOPHEN 5-325 MG TABLET ONE (11:30)
[2020-01-01 12:28] VITALS: BP 92/60
[2020-01-01] MEDS ORDERED: ONDANSETRON HCL INJ/PF 4 MG/2 ML SDV ONE (12:35)
[2020-01-01] MEDS ORDERED: NEOSTIGMINE METHYLSULFATE 10 MG/10 ML VIAL ONE (12:35)
[2020-01-01] MEDS ORDERED: GLYCOPYRROLATE 1 MG/5 ML VIAL ONE (12:35)
[2020-01-01] MEDS ORDERED: DEXAMETHASONE SOD PHOSPHATE INJ 4 MG/1 ML VIAL ONE (12:35)
[2020-01-01] MEDS ORDERED: ROCURONIUM BROMIDE INJ 50 MG/5 ML VIAL IV ONE (12:35)
[2020-01-01] MEDS ORDERED: KETOROLAC TROMETHAMINE 60 MG/2 ML SDV ONE (12:35)
[2020-01-01] MEDS ORDERED: LIDOCAINE 2% INJ-PF (20 MG/ML) 2 ML AMPUL ONE (12:35)
--- NOTE | 2020-01-01 15:41 | Operative Report ---
Operative Report DATE OF SURGERY: 01/01/20 PREOPERATIVE DIAGNOSIS: Undesired fertility POSTOPERATIVE DIAGNOSIS: Same OPERATION: Laparoscopic tubal cauterization SURGEON: ANKITA HOWE ANESTHESIA: GA COMPLICATIONS: None ESTIMATED BLOOD LOSS: 50 cc INTRAOPERATIVE FINDINGS: Normal uterus tubes and ovaries PROCEDURE: Patient was taken to the operating room prepared and draped in normal sterile fashion in dorsolithotomy position. Under sterile conditions and in and out cath was performed of approximately 30 cc of clear urine. A sterile speculum was then placed into the vagina the cervix was grasped with a single-tooth tenaculum on the anterior lip. A Hulka clamp was placed to the cervix for uterine manipulation without difficulty. The tenaculum and speculum were then removed. Change in attention was turned to the upper portion of the case where the umbilical skin incision was made. A varies needle was introduced through this incision and the abdomen was inflated with approximately 2 L of CO2 gas. Needle was removed and a 5 mm port was placed through the incision. The camera was introduced and the patient was placed in Trendelenburg with the above findings noted. Another 5 mm port was placed in the left lower quadrant. A blunt probe was introduced through this port and the bowel was swept away. A Kleppinger was then introduced through that port and beginning with the left fallopian tube the left fallopian tube was cauterized with approximately 3-1/2 cm. The occlusion was felt to be more than adequate. Repeated on the right fallopian tube without difficulty. Then removed and the abdomen was deflated through the umbilical port. Port sites were closed with 4-0 Vicryl. To recovery stable condition sponge lap and needle counts were correct x2..
== END 2020-01-01 12:25 | disposition home or self-care (01) ==
LOC: OROUT 08:16
PROVIDERS: ATTEND Obstetrics & Gynecology
DX: Z30.2 Encounter for sterilization (principal); Z03.818 Encounter for observation for suspected exposure to other biological agents ruled out; F17.210 Nicotine dependence, cigarettes, uncomplicated
CPT/HCPCS: 36415; 85027; 87635; 81025; 58670; J2250; J3010; J2704; C9803; 851; J1100; J1885; J2405; J2710; J3490